=== PATIENT | male | born 1955 | race Asian ===

== ENCOUNTER 2021-03-10 21:23 | Inpatient (IN) | payer MEDICARE, OTHER ==
[~2021-03-10] VITALS: Ht 170.2 cm; Wt 68.0 kg
--- NOTE | 2021-03-10 21:50 | NUR ---
PATIENT BIB [facility] TO BE MEDICALLY CLEARED TO BE EVAL BY PET TEAM FOR AGRESSIVE BEHAVIOR.
--- NOTE | 2021-03-10 22:00 | NUR ---
Crisis team Shahrzad present to do eval.
[2021-03-10 23:14] LABS: *BILIRUBIN,URIN NEGATIVE (NEGATIVE); *BLOOD, URINE NEGATIVE (NEGATIVE); *CLARITY,URINE CLEAR (CLEAR); *COLOR,URINE YELLOW (YELLOW); *KETONES,URINE NEGATIVE (NEGATIVE); *UROBILINOGEN,URINE 0.2 E.U./dl (NORMAL); LEUKOCYTE ESTERASE ,URINE NEGATIVE (NEGATIVE); NITRITE, URINE NEGATIVE (NEGATIVE); UGLUCOSE NEGATIVE (NEGATIVE)
[2021-03-10 23:16] LABS: CARBON DIOXIDE 35 mmol/L (21-32); CHLORIDE 102 mmol/L (98-107); CREATININE 0.9 mg/dL (0.6-1.3); GLUCOSE 90 mg/dL (74-106); POTASSIUM 4.5 mmol/L (3.5-5.1); UREA NITROGEN, BLOOD 14 mg/dL (7-18)
[2021-03-10 23:21] LABS: ALANINE AMINOTRANSFERASE 39 U/L (16-63); ALKALINE PHOSPHATASE 71 U/L (50-136); ASPARTATE AMINOTRANSFERASE 24 U/L (15-37); BILIRUBIN,DIRECT 0.1 mg/dL (0.0-0.2); BILIRUBIN,TOTAL 0.4 mg/dL (0.2-1.0); CREATINE KINASE, TOTAL 139 U/L (39-308); ETHANOL < 3 MG/DL (0-0); TOTAL PROTEIN, SERUM 7.1 g/dL (6.4-8.2)
[2021-03-10 23:22] LABS: HEMATOCRIT 39.4 % (36.7-47.1); MEAN CORPUSCULAR HEMOGLOBIN 33.3 uug (23.8-33.4); MEAN CORPUSCULAR VOLUME 98.8 fL (73.0-96.2); PLATELET COUNT (AUTO) 178 K/uL (152-348)
[2021-03-10 23:27] LABS: *AMPHETAMINE, URINE NEGATIVE (NEGATIVE); *CANNABINOID, URINE NEGATIVE (NEGATIVE); *COCCAINE, URINE NEGATIVE (NEGATIVE); *OPIATE, URINE NEGATIVE (NEGATIVE); *PHENCYCLIDINE SCREEN,URINE NEGATIVE (NEGATIVE)
[2021-03-10 23:29] LABS: THYROID STIMULATING HORMONE 4.141 mIU/mL (0.358-3.740)
[2021-03-11 00:01] LABS: ACETAMINOPHEN < 2.0 ug/mL (10-30)
[2021-03-11] MEDS ORDERED: ATOR80TA PO (00:08)
[2021-03-11] MEDS ORDERED: MEMA10TA PO (00:08)
[2021-03-11] MEDS ORDERED: ASCO500C18 PO (00:08)
[2021-03-11] MEDS ORDERED: DOCU100C36 PO (00:08)
[2021-03-11] MEDS ORDERED: LORA-258 PO (00:08)
[2021-03-11] MEDS ORDERED: RISP2TAB5 PO (00:08)
[2021-03-11] MEDS ORDERED: SENN-261 PO (00:08)
[2021-03-11] MEDS ORDERED: GABA-532 PO (00:08)
[2021-03-11] MEDS ORDERED: BISA10SU61 RC (00:08)
[2021-03-11] MEDS ORDERED: FAMO40TA7 PO (00:08)
[2021-03-11] MEDS ORDERED: DONE5TAB34 PO (00:08)
[2021-03-11] MEDS ORDERED: NA P133E RC (00:08)
[2021-03-11] MEDS ORDERED: BENZ0.5T43 PO (00:08)
[2021-03-11] MEDS ORDERED: MULT-594 PO (00:08)
[2021-03-11] MEDS ORDERED: RISP1TAB7 PO (00:08)
[2021-03-11] MEDS ORDERED: ASPI-612 PO (00:08)
[2021-03-11] MEDS ORDERED: ACET-2154 PO (00:08)
[2021-03-11] MEDS ORDERED: MAGN400O6 PO (00:08)
[2021-03-11] MEDS ORDERED: ZIPRASIDONE MESYLATE 20 MG VIAL IM ONE ×2 (00:12→00:15)
--- NOTE | 2021-03-11 00:15 | NUR ---
Pt. admitted to [facility], Room 137A, under care of Judy Worthington and Dr Taylor. Report given to ENRIQUETA Zepeda. Belongs List completed.
[2021-03-11] MEDS ORDERED: MAGNESIUM HYDROXIDE 30 ML LIQUID UDC PO PRN (03:00)
[2021-03-11] MEDS ORDERED: BLOOD SUGAR DIAGNOSTIC 1 EACH STRIP VI ONE (03:00)
[2021-03-11] MEDS ORDERED: MAG HYDROX/AL HYDROX/SIMETH 30 ML LIQUID UDC PO PRN (03:00)
[2021-03-11] MEDS ORDERED: ACETAMINOPHEN 325 MG TABLET PO PRN (03:00)
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
[2021-03-11] MEDS: LORAZEPAM 0.5 MG TABLET PO PRN ×3 (06:12→23:31)
--- NOTE | 2021-03-11 06:49 | NUR ---
Did not sleep, all night. PRN ativan was given, with a little water, around 0610. As of now, he remains hyperverbal, but slightly calmer. Stated he wanted some breakfast.
[2021-03-11 07:30] VITALS: BP 122/97
[2021-03-11] MEDS: DOCUSATE SODIUM 100 MG CAPSULE PO SCH ×2 (09:33→19:03)
[2021-03-11] MEDS: MEMANTINE HCL 10 MG TABLET PO SCH ×2 (09:33→19:03)
[2021-03-11] MEDS: MULTIVITAMINS,THERAPEUTIC TABLET PO SCH (09:33)
[2021-03-11] MEDS: FAMOTIDINE 20 MG TABLET PO SCH (09:33)
[2021-03-11] MEDS: ASCORBIC ACID 500 MG TABLET PO SCH ×3 (09:33→23:32)
[2021-03-11] MEDS: GABAPENTIN 100 MG CAPSULE PO SCH ×2 (09:33→12:50)
[2021-03-11] MEDS: ASPIRIN 325 MG TABLET PO SCH (11:03)
--- NOTE | 2021-03-11 11:07 | NUR ---
GPS: PT RECEIVED ON MARKUS-CHAIR FOR SAFETY. PT CONFUSED AND DISORIENTED. PT WITH EPISODES OF SCREAMING ON THE HALLWAY, TALKING TO HIMSELF IN [place]. PT SPEAKS AND UNDERSTANDS TUNISIAN WELL. REDIRECT PT AND TOLD NOT TO SCREAM, PT ANSWERED BACK, "OKAY, SCREAM NOT GOOD". ATIVAN GIVEN 5 MINUTES AGO AND TOLERATED WELL BY PT.
--- NOTE | 2021-03-11 16:23 | NUR ---
CRISS Initial Discharge Note Pt currently resides at [facility] located at [address] [place] [address] ([phone]). Pt does not have any support from family members at this time. CRISS contacted [facility] and spoke with Mitchell, rental coordinator ([phone]) who will follow-up and inform if pt is welcome back upon discharge. CRISS will coordinate with pt, treatment team, and MD to coordinate a safe and proper discharge.
--- NOTE | 2021-03-11 16:34 | NUR ---
SW Discharge Note Update Spoke with Mitchell ([phone]) with [facility] [place] [address] [place] [address] ([phone]) who informed [facility] is not able to accept pt back after discharge.
[2021-03-11 16:52] VITALS: BP 90/72
[2021-03-11] MEDS ORDERED: risperiDONE 0.5 MG TABLET PO SCH (17:00)
[2021-03-11] MEDS: BENZTROPINE MESYLATE 0.5 MG TABLET PO SCH (19:03)
[2021-03-11] MEDS: busPIRone 5 MG TABLET PO SCH (19:03)
[2021-03-11] MEDS: LITHIUM CARBONATE 150 MG CAPSULE PO SCH (19:09)
[2021-03-11 20:06] VITALS: BP 134/66
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
[2021-03-11] MEDS: ATORVASTATIN 40 MG TABLET PO SCH ×2 (21:59→23:32)
[2021-03-11] MEDS: SENNOSIDES 1 TABLET PO SCH ×2 (21:59→23:31)
[2021-03-11] MEDS: DONEPEZIL 5 MG TABLET PO SCH ×2 (21:59→23:32)
--- NOTE | 2021-03-12 05:14 | NUR ---
Received to care, up in janeth chair, sleeping. HE awoke at 2331, and was given his medications, along with PRN Ativan, for anxiety, and restlessness. He was given food, fluids, and was assisted to the toilet. He was taken to bed, but immediately tried to get up, so he slept at nurses station, in janeth chair. He continues to sleep. No distress noted.
[2021-03-12 07:30] VITALS: BP 148/93
--- NOTE | 2021-03-12 09:21 | NUR ---
Treatment Plan Patient unable to sign treatment plan due to disorganized thought process.
[2021-03-12] MEDS: risperiDONE 0.5 MG TABLET PO SCH ×3 (09:28→18:16)
[2021-03-12] MEDS: MEMANTINE HCL 10 MG TABLET PO SCH ×2 (09:29→18:16)
[2021-03-12] MEDS: ASCORBIC ACID 500 MG TABLET PO SCH ×2 (09:29→20:50)
[2021-03-12] MEDS: BENZTROPINE MESYLATE 0.5 MG TABLET PO SCH ×2 (09:29→18:17)
[2021-03-12] MEDS: LITHIUM CARBONATE 150 MG CAPSULE PO SCH ×3 (09:29→21:43)
[2021-03-12] MEDS: MULTIVITAMINS,THERAPEUTIC TABLET PO SCH (09:29)
[2021-03-12] MEDS: LORAZEPAM 0.5 MG TABLET PO PRN ×2 (09:29→20:50)
[2021-03-12] MEDS: busPIRone 5 MG TABLET PO SCH ×3 (09:29→18:16)
[2021-03-12] MEDS: FAMOTIDINE 20 MG TABLET PO SCH (09:29)
[2021-03-12] MEDS: DOCUSATE SODIUM 100 MG CAPSULE PO SCH ×2 (09:29→18:16)
[2021-03-12] MEDS: ASPIRIN 325 MG TABLET PO SCH (09:30)
--- NOTE | 2021-03-12 10:32 | NUR ---
Firearms Report Clinical Services Assistant completed and submitted a DOJ firearms report for 5150 grave disability and danger to others certifications. A copy of report has been placed in patient chart.
[2021-03-12 15:57] VITALS: BP 123/82
[2021-03-12 20:28] VITALS: BP 137/96
[2021-03-12] MEDS: SENNOSIDES 1 TABLET PO SCH (20:49)
[2021-03-12] MEDS: risperiDONE 1 MG TABLET PO SCH (20:50)
[2021-03-12] MEDS: ATORVASTATIN 40 MG TABLET PO SCH (20:50)
[2021-03-12] MEDS: DONEPEZIL 5 MG TABLET PO SCH (20:50)
[2021-03-13 07:30] VITALS: BP 135/99
[2021-03-13] MEDS: risperiDONE 0.5 MG TABLET PO SCH ×3 (08:08→17:26)
[2021-03-13] MEDS: LITHIUM CARBONATE 150 MG CAPSULE PO SCH ×3 (08:09→21:35)
[2021-03-13] MEDS: FAMOTIDINE 20 MG TABLET PO SCH (08:09)
[2021-03-13] MEDS: busPIRone 5 MG TABLET PO SCH ×3 (08:09→17:27)
[2021-03-13] MEDS: DOCUSATE SODIUM 100 MG CAPSULE PO SCH ×2 (08:09→17:27)
[2021-03-13] MEDS: ASPIRIN 325 MG TABLET PO SCH (08:09)
[2021-03-13] MEDS: MEMANTINE HCL 10 MG TABLET PO SCH ×2 (08:09→17:26)
[2021-03-13] MEDS: ASCORBIC ACID 500 MG TABLET PO SCH ×2 (08:10→21:27)
[2021-03-13] MEDS: MULTIVITAMINS,THERAPEUTIC TABLET PO SCH (08:10)
[2021-03-13] MEDS: BENZTROPINE MESYLATE 0.5 MG TABLET PO SCH ×2 (08:10→17:27)
[2021-03-13] MEDS: LORAZEPAM 0.5 MG TABLET PO PRN ×3 (08:26→21:28)
[2021-03-13] MEDS ORDERED: HALOPERIDOL LACTATE 5 MG/1 ML VIAL IM ONE (08:45)
[2021-03-13] MEDS ORDERED: LORAZEPAM 2 MG/1 ML VIAL IM ONE (08:45)
[2021-03-13] MEDS ORDERED: diphenhydrAMINE 50 MG/1 ML VIAL IM ONE (08:45)
--- NOTE | 2021-03-13 09:00 | NUR ---
patient is very agitated, combative, hitting the staff, kicking, yelling, throwing stuff, not being able to redirect, order obtained for IM, Ativan, Haldol, and Benadryl, administered, as ordered, continue to monitor behavior. Addendum: 03/13/21 at 1300 by ARIAN ALEXANDER RN RN patient noted with very aggressive and combative behavior, offered to assist with toiling, starting yelling at staff, kicking with his legs and punching the staff, patient is very high risk to fall, unsteady gait, if staff tried to assist with toiling for patient safety, patient started hitting instead, tried to explain about risk to fall and injury, patient unable to understand due to combativeness and aggressive behavior, very difficult to redirect. IM of Ativan, Benadryl,and Haldol administered as ordered, continue to monitor for safety and for behavior, no acute distress noted, respirations are even and nonlabored.
--- NOTE | 2021-03-13 09:15 | NUR ---
patient sitting in janeth chair, offered fluids, still noted with agitation, yelling and trying to hit the staff, continue to monitor behavior, no distress noted, respirations are even and nonlabored.
--- NOTE | 2021-03-13 10:00 | NUR ---
patient sitting in the janeth chair, talking to himself, no distress noted, little calm, fluids offered, no distress noted, respirations are even and nonlabored.
--- NOTE | 2021-03-13 10:33 | NUR ---
patient sitting in janeth chair, talking to himself, no distress noted, respiration are 16, even and nonlabored. calm at this time, continue to monitor behaviour
--- NOTE | 2021-03-13 13:01 | NUR ---
patient sitting in janeth chair, calm, fluids and lunch offered, assisted to the toilet, kept clean and dry, no distress noted, resp even nonlabored, skin warm and dry dry to touch. continue to monitor for patient safety and for behavior
[2021-03-13 16:00] VITALS: BP 125/87
--- NOTE | 2021-03-13 16:48 | NUR ---
patient noted with increased pulse above 100, no other symptoms noted, reported to ashley BECKWITH, with order to do EKG, order noted
--- NOTE | 2021-03-13 18:00 | NUR ---
ekg reported to Jose L, with order to do cbc,cmp, order noted.
--- NOTE | 2021-03-13 19:21 | NUR ---
endorsed to next shift accordingly, no acute distress noted
[2021-03-13 20:00] VITALS: BP 116/75
[2021-03-13] MEDS: risperiDONE 1 MG TABLET PO SCH (21:27)
[2021-03-13] MEDS: SENNOSIDES 1 TABLET PO SCH (21:27)
[2021-03-13] MEDS: DONEPEZIL 5 MG TABLET PO SCH (21:27)
[2021-03-13] MEDS: ATORVASTATIN 40 MG TABLET PO SCH (21:28)
[2021-03-13 21:36] LABS: HEMATOCRIT 43.1 % (36.7-47.1); MEAN CORPUSCULAR HEMOGLOBIN 33.8 uug (23.8-33.4); MEAN CORPUSCULAR VOLUME 99.1 fL (73.0-96.2); PLATELET COUNT (AUTO) 201 K/uL (152-348)
[2021-03-13 21:38] LABS: CREATININE 0.8 mg/dL (0.6-1.3); POTASSIUM 4.2 mmol/L (3.5-5.1)
[2021-03-13 21:44] LABS: BILIRUBIN,TOTAL 0.6 mg/dL (0.2-1.0); TOTAL PROTEIN, SERUM 7.6 g/dL (6.4-8.2)
[2021-03-14] MEDS: LITHIUM CARBONATE 150 MG CAPSULE PO SCH ×3 (08:00→21:46)
[2021-03-14] MEDS: ASCORBIC ACID 500 MG TABLET PO SCH ×2 (09:00→21:46)
[2021-03-14] MEDS: MEMANTINE HCL 10 MG TABLET PO SCH ×2 (09:00→16:50)
[2021-03-14] MEDS: busPIRone 5 MG TABLET PO SCH ×3 (09:00→16:50)
[2021-03-14] MEDS: BENZTROPINE MESYLATE 0.5 MG TABLET PO SCH ×2 (09:00→16:51)
[2021-03-14] MEDS ORDERED: diphenhydrAMINE 50 MG/1 ML VIAL IM ONE (09:00)
[2021-03-14] MEDS: FAMOTIDINE 20 MG TABLET PO SCH (09:00)
[2021-03-14] MEDS: MULTIVITAMINS,THERAPEUTIC TABLET PO SCH (09:00)
[2021-03-14] MEDS: DOCUSATE SODIUM 100 MG CAPSULE PO SCH ×2 (09:00→16:50)
[2021-03-14] MEDS: risperiDONE 0.5 MG TABLET PO SCH ×3 (09:00→16:51)
[2021-03-14] MEDS ORDERED: LORAZEPAM 2 MG/1 ML VIAL IM ONE (09:00)
[2021-03-14] MEDS ORDERED: HALOPERIDOL LACTATE 5 MG/1 ML VIAL IM ONE (09:00)
[2021-03-14] MEDS: ASPIRIN 325 MG TABLET PO SCH (09:00)
--- NOTE | 2021-03-14 09:11 | NUR ---
Patient became aggressive, combative, striking out at others, Dr. Wells was called and ordered Haldol 5 mg, Ativan 1 mg, and Benadryl 25 mg given at 09:05 am. Pt. had to be held by 4 people including security. Pt. was kicking and punching. No physical harm was caused between patient or staff. Pt. will be monitored every 15 minutes after IM.
--- NOTE | 2021-03-14 15:10 | NUR ---
Pt. is received awake in his room. Pt. affect is aggressive towards staff, verbally abusive. After IM patient became more calm and cooperative. Compliant with medications at 13:00, refused at 09:00. Unsteady gait. Reality orientation provided. Fall and safety precautions implemented.
[2021-03-14 15:58] VITALS: BP 131/84
[2021-03-14 20:12] VITALS: BP 123/88
[2021-03-14] MEDS: DONEPEZIL 5 MG TABLET PO SCH (21:46)
[2021-03-14] MEDS: LORAZEPAM 0.5 MG TABLET PO PRN (21:46)
[2021-03-14] MEDS: risperiDONE 1 MG TABLET PO SCH (21:46)
[2021-03-14] MEDS: SENNOSIDES 1 TABLET PO SCH (21:46)
[2021-03-14] MEDS: ATORVASTATIN 40 MG TABLET PO SCH (21:51)
[2021-03-15] MEDS: ASPIRIN 325 MG TABLET PO SCH (09:45)
[2021-03-15] MEDS: LITHIUM CARBONATE 150 MG CAPSULE PO SCH ×3 (09:46→21:44)
[2021-03-15] MEDS: MEMANTINE HCL 10 MG TABLET PO SCH ×2 (09:46→18:16)
[2021-03-15] MEDS: FAMOTIDINE 20 MG TABLET PO SCH (09:46)
[2021-03-15] MEDS: MULTIVITAMINS,THERAPEUTIC TABLET PO SCH (09:46)
[2021-03-15] MEDS: BENZTROPINE MESYLATE 0.5 MG TABLET PO SCH (09:47)
[2021-03-15] MEDS: busPIRone 5 MG TABLET PO SCH (09:47)
[2021-03-15] MEDS: DOCUSATE SODIUM 100 MG CAPSULE PO SCH ×2 (09:49→18:16)
[2021-03-15] MEDS: ASCORBIC ACID 500 MG TABLET PO SCH ×2 (09:56→21:44)
[2021-03-15] MEDS: LORAZEPAM 0.5 MG TABLET PO PRN (09:57)
[2021-03-15] MEDS: CLONAZEPAM 0.5 MG TABLET PO SCH ×3 (10:30→18:17)
[2021-03-15] MEDS ORDERED: busPIRone 5 MG TABLET PO SCH (13:00)
[2021-03-15] MEDS: risperiDONE 0.5 MG TABLET PO SCH ×2 (13:12→18:16)
[2021-03-15 16:15] VITALS: BP 126/83
--- NOTE | 2021-03-15 17:21 | NUR ---
SW SNF Referral CRISS spoke with Mitchell ([phone]) with [facility] who informed pt is not accepted back at [facility]. CRISS faxed patient's referral packet to Mitchell for review and to re-route for appropriate placement (fax: [phone]).
--- NOTE | 2021-03-15 19:02 | NUR ---
patient has been in janeth chair all shift noisy in am much quieter after ATIVAN IN AM AND KLONOASHWIN IN PM CONTINUE TO MONITOR FOR SAFETY
[2021-03-15 19:58] VITALS: BP 148/93
[2021-03-15] MEDS ORDERED: risperiDONE 0.5 MG TABLET PO SCH (21:00)
[2021-03-15] MEDS: SENNOSIDES 1 TABLET PO SCH (21:44)
[2021-03-15] MEDS: DONEPEZIL 5 MG TABLET PO SCH (21:44)
[2021-03-15] MEDS: ATORVASTATIN 40 MG TABLET PO SCH (21:45)
[2021-03-16 07:57] VITALS: BP 117/79
[2021-03-16 08:14] LABS: HEMATOCRIT 43.2 % (36.7-47.1); MEAN CORPUSCULAR HEMOGLOBIN 33.6 uug (23.8-33.4); MEAN CORPUSCULAR VOLUME 98.8 fL (73.0-96.2); PLATELET COUNT (AUTO) 210 K/uL (152-348)
[2021-03-16 08:25] LABS: BILIRUBIN,TOTAL 1.2 mg/dL (0.2-1.0); TOTAL PROTEIN, SERUM 7.5 g/dL (6.4-8.2)
[2021-03-16] MEDS: FAMOTIDINE 20 MG TABLET PO SCH (08:56)
[2021-03-16] MEDS: ASPIRIN 325 MG TABLET PO SCH (08:56)
[2021-03-16] MEDS: DOCUSATE SODIUM 100 MG CAPSULE PO SCH ×2 (08:56→17:00)
[2021-03-16] MEDS: MEMANTINE HCL 10 MG TABLET PO SCH ×2 (08:57→17:15)
[2021-03-16] MEDS: MULTIVITAMINS,THERAPEUTIC TABLET PO SCH (08:57)
[2021-03-16] MEDS: LORAZEPAM 0.5 MG TABLET PO PRN (08:57)
[2021-03-16] MEDS: CLONAZEPAM 0.5 MG TABLET PO SCH ×3 (08:57→17:14)
[2021-03-16] MEDS: LITHIUM CARBONATE 150 MG CAPSULE PO SCH ×3 (08:57→21:42)
[2021-03-16] MEDS: ASCORBIC ACID 500 MG TABLET PO SCH ×2 (08:57→21:40)
[2021-03-16] MEDS: GLUCERNA SHAKE 237 ML CAN PO SCH (09:10)
[2021-03-16] MEDS: risperiDONE 0.5 MG TABLET PO SCH ×2 (09:38→14:24)
--- NOTE | 2021-03-16 13:50 | NUR ---
SW SNF Contact SW spoke with Mitchell ebd teacher with [facility] [address] [place] [address] ([phone]) to follow-up on SNF referral status. Mitchell informed pt has been referred to [facility] per psychiatrist request, pending acceptance.
[2021-03-16 16:27] VITALS: BP 110/70
[2021-03-16] MEDS ORDERED: risperiDONE 0.5 MG TABLET PO SCH ×2 (17:00→21:00)
[2021-03-16] MEDS: risperiDONE 2 MG TABLET PO SCH ×2 (17:15→21:40)
--- NOTE | 2021-03-16 18:11 | NUR ---
recd patient ambulatory unsteady encouraged to stay in room aqnd call for help. patient incontinent of stool and disoriented, frequently reoriented, Patient incontinment of stool and urine frequent diaper changes done with skin care.Behavior calmer today. up in janeth chair for safety table intact continue to monitor for safety;
[2021-03-16] MEDS: SENNOSIDES 1 TABLET PO SCH (21:40)
[2021-03-16] MEDS: DONEPEZIL 5 MG TABLET PO SCH (21:40)
[2021-03-16] MEDS: ATORVASTATIN 40 MG TABLET PO SCH (21:41)
[2021-03-16 21:46] VITALS: BP 132/80
--- NOTE | 2021-03-17 04:57 | NUR ---
Received to care, up in janeth chair, sleeping on and off. Compliant with medications. Assisted with fluids, milk, and a snack. Assisted to bed. Slightly combative when diaper was changed. Has slept well all night. Continue to monitor for safety.
--- NOTE | 2021-03-17 04:57 | NUR ---
Received to care, up in janeth chair, sleeping on anfd off.
[2021-03-17 07:30] VITALS: BP_SYST 136; BP_SYST 146; BP_DIAS 68; BP_DIAS 86
[2021-03-17] MEDS: LORAZEPAM 0.5 MG TABLET PO PRN (08:37)
[2021-03-17] MEDS: CLONAZEPAM 0.5 MG TABLET PO SCH ×3 (08:37→16:49)
[2021-03-17] MEDS: MULTIVITAMINS,THERAPEUTIC TABLET PO SCH (08:37)
[2021-03-17] MEDS: GLUCERNA SHAKE 237 ML CAN PO SCH (08:37)
[2021-03-17] MEDS: ASPIRIN 325 MG TABLET PO SCH (08:37)
[2021-03-17] MEDS: MEMANTINE HCL 10 MG TABLET PO SCH ×2 (08:37→16:49)
[2021-03-17] MEDS: risperiDONE 2 MG TABLET PO SCH ×4 (08:37→22:27)
[2021-03-17] MEDS: ASCORBIC ACID 500 MG TABLET PO SCH ×2 (08:37→22:27)
[2021-03-17] MEDS: DOCUSATE SODIUM 100 MG CAPSULE PO SCH ×2 (08:37→16:49)
[2021-03-17] MEDS: FAMOTIDINE 20 MG TABLET PO SCH (08:37)
[2021-03-17] MEDS: LITHIUM CARBONATE 150 MG CAPSULE PO SCH ×3 (08:38→22:28)
--- NOTE | 2021-03-17 11:10 | NUR ---
GPS: PT ON MARKUS-CHAIR FOR SAFETY. PT COOPERATIVE WITH CARE AND COMPLIANTY WITH MEDS. PT GIVEN ATIVAN AFTER PT SCREAMING AND GETTING AGITATED ALONG THE HALLWAY. RIGHT NOW, PT SLEEPING AND QUIET. DENIES PAIN OR DISCOMFORT.
[2021-03-17 16:00] VITALS: BP 124/98
[2021-03-17 19:55] VITALS: BP 105/71
[2021-03-17] MEDS: ATORVASTATIN 40 MG TABLET PO SCH (22:26)
[2021-03-17] MEDS: SENNOSIDES 1 TABLET PO SCH (22:26)
[2021-03-17] MEDS: DONEPEZIL 5 MG TABLET PO SCH (22:27)
--- NOTE | 2021-03-18 02:03 | NUR ---
Received up in janeth chair. Confused, and cooperative. No aggressive behaviors, exhibited. he was assisted to bed, and is asleep. No distress noted.
[2021-03-18 07:30] VITALS: BP 105/68
[2021-03-18] MEDS: ASCORBIC ACID 500 MG TABLET PO SCH ×2 (08:16→20:58)
[2021-03-18] MEDS: DOCUSATE SODIUM 100 MG CAPSULE PO SCH ×2 (08:16→16:48)
[2021-03-18] MEDS: FAMOTIDINE 20 MG TABLET PO SCH (08:16)
[2021-03-18] MEDS: MEMANTINE HCL 10 MG TABLET PO SCH ×2 (08:17→16:48)
[2021-03-18] MEDS: GLUCERNA SHAKE 237 ML CAN PO SCH (08:17)
[2021-03-18] MEDS: risperiDONE 2 MG TABLET PO SCH ×4 (08:17→20:58)
[2021-03-18] MEDS: MULTIVITAMINS,THERAPEUTIC TABLET PO SCH (08:17)
[2021-03-18] MEDS: ASPIRIN 325 MG TABLET PO SCH (08:17)
[2021-03-18] MEDS: LITHIUM CARBONATE 150 MG CAPSULE PO SCH ×3 (08:17→21:20)
[2021-03-18] MEDS: CLONAZEPAM 0.5 MG TABLET PO SCH ×3 (08:17→16:48)
[2021-03-18] MEDS: BENZTROPINE MESYLATE 0.5 MG TABLET PO SCH ×2 (12:42→16:48)
[2021-03-18 16:31] VITALS: BP 124/70
[2021-03-18 20:02] VITALS: BP 120/76
[2021-03-18] MEDS: SENNOSIDES 1 TABLET PO SCH (20:57)
[2021-03-18] MEDS: DONEPEZIL 5 MG TABLET PO SCH (20:58)
[2021-03-18] MEDS: ATORVASTATIN 40 MG TABLET PO SCH (20:58)
--- NOTE | 2021-03-19 05:17 | NUR ---
Received to care, up in janeth chair, sleeping on and off. Compliant with medications. Assisted with fluids, milk, and a snack, then to bed. Compliant with care, even when diaper was changed. Has slept well all night. Continue to monitor for safety.
[2021-03-19 07:14] LABS: HEMATOCRIT 41.7 % (36.7-47.1); MEAN CORPUSCULAR HEMOGLOBIN 33.2 uug (23.8-33.4); MEAN CORPUSCULAR VOLUME 98.1 fL (73.0-96.2); PLATELET COUNT (AUTO) 219 K/uL (152-348)
[2021-03-19 07:30] VITALS: BP 120/79
[2021-03-19 07:41] LABS: THYROID STIMULATING HORMONE 5.173 mIU/mL (0.358-3.740)
[2021-03-19 07:53] LABS: BILIRUBIN,TOTAL 0.9 mg/dL (0.2-1.0); CREATININE 1.1 mg/dL (0.6-1.3); TOTAL PROTEIN, SERUM 6.9 g/dL (6.4-8.2)
[2021-03-19] MEDS: DOCUSATE SODIUM 100 MG CAPSULE PO SCH ×2 (09:00→17:35)
[2021-03-19] MEDS: ASCORBIC ACID 500 MG TABLET PO SCH ×2 (09:51→20:07)
[2021-03-19] MEDS: BENZTROPINE MESYLATE 0.5 MG TABLET PO SCH ×3 (09:51→17:35)
[2021-03-19] MEDS: FAMOTIDINE 20 MG TABLET PO SCH (09:51)
[2021-03-19] MEDS: MULTIVITAMINS,THERAPEUTIC TABLET PO SCH (09:51)
[2021-03-19] MEDS: ASPIRIN 325 MG TABLET PO SCH (09:51)
[2021-03-19] MEDS: MEMANTINE HCL 10 MG TABLET PO SCH ×2 (09:52→17:35)
[2021-03-19] MEDS: risperiDONE 2 MG TABLET PO SCH ×4 (09:52→20:07)
[2021-03-19] MEDS: CLONAZEPAM 0.5 MG TABLET PO SCH ×3 (09:52→17:00)
[2021-03-19] MEDS: GLUCERNA SHAKE 237 ML CAN PO SCH (09:53)
[2021-03-19 16:32] VITALS: BP 142/74
--- NOTE | 2021-03-19 16:32 | NUR ---
PAtient up in janeth chair in hallway resp unlabored, easily arousable to verbal and tactile stimuli, oral intake fair able to feed himself with little asssi. No behavior problems today less agitated patient monitored for safety.
[2021-03-19] MEDS: DONEPEZIL 5 MG TABLET PO SCH (20:07)
[2021-03-19] MEDS: ATORVASTATIN 40 MG TABLET PO SCH (20:07)
[2021-03-19] MEDS: SENNOSIDES 1 TABLET PO SCH (20:07)
[2021-03-19] MEDS: LITHIUM CARBONATE 150 MG CAPSULE PO SCH (20:09)
[2021-03-19 20:28] VITALS: BP 139/96
--- NOTE | 2021-03-20 06:03 | NUR ---
Gps: patient remain calm and cooperative with meds and care. no agitation noted.slept 7.45 hrs through the night. continue plan of care.
[2021-03-20 07:30] VITALS: BP 120/75
[2021-03-20] MEDS: ASCORBIC ACID 500 MG TABLET PO SCH ×2 (08:19→20:12)
[2021-03-20] MEDS: BENZTROPINE MESYLATE 0.5 MG TABLET PO SCH ×3 (08:19→18:04)
[2021-03-20] MEDS: risperiDONE 2 MG TABLET PO SCH ×4 (08:19→20:12)
[2021-03-20] MEDS: FAMOTIDINE 20 MG TABLET PO SCH (08:19)
[2021-03-20] MEDS: LITHIUM CARBONATE 150 MG CAPSULE PO SCH ×2 (08:20→20:15)
[2021-03-20] MEDS: MEMANTINE HCL 10 MG TABLET PO SCH ×2 (08:20→18:05)
[2021-03-20] MEDS: ASPIRIN 325 MG TABLET PO SCH (08:20)
[2021-03-20] MEDS: CLONAZEPAM 0.5 MG TABLET PO SCH ×3 (08:20→18:05)
[2021-03-20] MEDS: MULTIVITAMINS,THERAPEUTIC TABLET PO SCH (08:20)
[2021-03-20] MEDS: GLUCERNA SHAKE 237 ML CAN PO SCH (08:20)
[2021-03-20] MEDS: DOCUSATE SODIUM 100 MG CAPSULE PO SCH ×2 (08:20→18:05)
--- NOTE | 2021-03-20 10:34 | NUR ---
GPS; PT ON BED. ASSISTED PT TRANSFER FROM BED TO MARKUS-CHAIR FOR BREAKFAST. FED THE PT AND PT ABLE TO TOLERATE WELL THE FOOD AND COMPLIANT WITH MEDICATIONS. PT ON TOTAL CARE. NO AGGRESSIVE BEHAVIOR AT THIS TIME. WILL MONITOR PT.
[2021-03-20 15:37] VITALS: BP 114/68
--- NOTE | 2021-03-20 18:33 | NUR ---
GPS: ASSISTED VET TECH TODAY AND GIVEN PT A SHOWER. PT GETS AGGRESSIVE AND TRYING TO HIT VET TECH WHILE PLACING A SOCKS ON PT. ABLE TO HOLD PTS ARM. PT DENIES ANY PAIN OR DISCOMFORT. ABLE TO TOLERATE THE MEDICATIONS. NO YELLING OR SCREAMING AT THIS TIME.
[2021-03-20 20:00] VITALS: BP 115/72
[2021-03-20] MEDS: DONEPEZIL 5 MG TABLET PO SCH (20:12)
[2021-03-20] MEDS: SENNOSIDES 1 TABLET PO SCH (20:12)
[2021-03-20] MEDS: ATORVASTATIN 40 MG TABLET PO SCH (20:12)
--- NOTE | 2021-03-21 05:58 | NUR ---
GPS: Patient remain compliant and cooperative with staff with meds and care. slept 8.15 hrs through the night. no agitation noted at this time..
[2021-03-21 07:30] VITALS: BP 129/81
[2021-03-21] MEDS: FAMOTIDINE 20 MG TABLET PO SCH (09:01)
[2021-03-21] MEDS: MULTIVITAMINS,THERAPEUTIC TABLET PO SCH (09:01)
[2021-03-21] MEDS: MEMANTINE HCL 10 MG TABLET PO SCH ×2 (09:01→16:59)
[2021-03-21] MEDS: DOCUSATE SODIUM 100 MG CAPSULE PO SCH ×2 (09:01→16:59)
[2021-03-21] MEDS: BENZTROPINE MESYLATE 0.5 MG TABLET PO SCH ×3 (09:01→16:59)
[2021-03-21] MEDS: ASCORBIC ACID 500 MG TABLET PO SCH ×2 (09:02→21:01)
[2021-03-21] MEDS: LITHIUM CARBONATE 150 MG CAPSULE PO SCH ×2 (09:02→21:03)
[2021-03-21] MEDS: ASPIRIN 325 MG TABLET PO SCH (09:02)
[2021-03-21] MEDS: GLUCERNA SHAKE 237 ML CAN PO SCH (09:03)
[2021-03-21] MEDS: CLONAZEPAM 0.5 MG TABLET PO SCH ×3 (09:03→17:00)
[2021-03-21] MEDS: risperiDONE 2 MG TABLET PO SCH ×4 (09:59→21:01)
[2021-03-21 15:02] VITALS: BP 106/70
--- NOTE | 2021-03-21 15:23 | NUR ---
GPS: pt is calm, currently sleeping on geriatric chair in hallway for observation. Pt tolerated meals well, he is compliant and cooperative with care and medications. Pt take medications crushed in applesauce, he is a/o x 1, does not speak much Marshallese but understands when medication and food is being given to him.
[2021-03-21 20:00] VITALS: BP 105/64
[2021-03-21] MEDS: SENNOSIDES 1 TABLET PO SCH (21:01)
[2021-03-21] MEDS: ATORVASTATIN 40 MG TABLET PO SCH (21:01)
[2021-03-21] MEDS: DONEPEZIL 5 MG TABLET PO SCH (21:01)
--- NOTE | 2021-03-22 04:00 | NUR ---
Received to care, up in janeth chair, sleeping on and off. Compliant with medications. Assisted with fluids, milk, and a snack. Assisted to bed, without any problems. No aggressive behavior, during patient care. Has slept well all night, so far. Will continue to monitor for safety.
[2021-03-22 07:30] VITALS: BP 133/87
[2021-03-22] MEDS: LITHIUM CARBONATE 150 MG CAPSULE PO SCH ×2 (09:02→21:07)
[2021-03-22] MEDS: CLONAZEPAM 0.5 MG TABLET PO SCH ×3 (09:02→17:23)
[2021-03-22] MEDS: risperiDONE 2 MG TABLET PO SCH ×4 (09:02→20:59)
[2021-03-22] MEDS: GLUCERNA SHAKE 237 ML CAN PO SCH (09:03)
[2021-03-22] MEDS: MEMANTINE HCL 10 MG TABLET PO SCH ×2 (09:08→17:23)
[2021-03-22] MEDS: DOCUSATE SODIUM 100 MG CAPSULE PO SCH ×2 (09:08→17:00)
[2021-03-22] MEDS: FAMOTIDINE 20 MG TABLET PO SCH (09:08)
[2021-03-22] MEDS: MULTIVITAMINS,THERAPEUTIC TABLET PO SCH (09:08)
[2021-03-22] MEDS: ASCORBIC ACID 500 MG TABLET PO SCH ×2 (09:09→20:59)
[2021-03-22] MEDS: BENZTROPINE MESYLATE 0.5 MG TABLET PO SCH ×3 (09:09→17:23)
[2021-03-22] MEDS: ASPIRIN 325 MG TABLET PO SCH (09:09)
--- NOTE | 2021-03-22 10:41 | NUR ---
patient is alert but is disoriented. he is uncooperative, agitated, resistive to care, and constantly screams at staff and attempts to hit staff during care. patient screams "I wanna go home!" frequently and he is provided with reality orientation. patient requires assistance with ADL's, ambulation, and feeding. patient is compliant with medications with prompting and reality orientation. patient provided with education about impulse control and instructed to communicate needs to staff appropriately.
[2021-03-22 15:02] VITALS: BP 150/83
[2021-03-22 20:01] VITALS: BP 130/81
[2021-03-22] MEDS: ATORVASTATIN 40 MG TABLET PO SCH (20:59)
[2021-03-22] MEDS: DONEPEZIL 5 MG TABLET PO SCH (20:59)
[2021-03-22] MEDS: SENNOSIDES 1 TABLET PO SCH (20:59)
[2021-03-23 07:49] LABS: MEAN CORPUSCULAR HEMOGLOBIN 33.2 uug (23.8-33.4); MEAN CORPUSCULAR VOLUME 98.3 fL (73.0-96.2); PLATELET COUNT (AUTO) 239 K/uL (152-348)
[2021-03-23 08:12] LABS: BILIRUBIN,TOTAL 0.7 mg/dL (0.2-1.0); CREATININE 0.9 mg/dL (0.6-1.3); POTASSIUM 3.8 mmol/L (3.5-5.1); TOTAL PROTEIN, SERUM 7.2 g/dL (6.4-8.2)
[2021-03-23 08:30] VITALS: BP 121/65
[2021-03-23] MEDS: MULTIVITAMINS,THERAPEUTIC TABLET PO SCH (08:57)
[2021-03-23] MEDS: DOCUSATE SODIUM 100 MG CAPSULE PO SCH ×2 (08:57→17:32)
[2021-03-23] MEDS: MEMANTINE HCL 10 MG TABLET PO SCH ×2 (08:57→17:34)
[2021-03-23] MEDS: BENZTROPINE MESYLATE 0.5 MG TABLET PO SCH ×3 (08:58→17:32)
[2021-03-23] MEDS: CLONAZEPAM 0.5 MG TABLET PO SCH ×3 (08:58→17:32)
[2021-03-23] MEDS: risperiDONE 2 MG TABLET PO SCH ×4 (08:58→20:55)
[2021-03-23] MEDS: ASCORBIC ACID 500 MG TABLET PO SCH ×2 (08:58→20:55)
[2021-03-23] MEDS: FAMOTIDINE 20 MG TABLET PO SCH (08:58)
[2021-03-23] MEDS: GLUCERNA SHAKE 237 ML CAN PO SCH (08:58)
[2021-03-23] MEDS: ASPIRIN 325 MG TABLET PO SCH (08:59)
[2021-03-23] MEDS: LITHIUM CARBONATE 150 MG CAPSULE PO SCH ×2 (08:59→20:59)
--- NOTE | 2021-03-23 09:00 | NUR ---
GPS: PT ON BED ASLEEP WHEN RECEIVED. TRANSFERRED TO MARKUS-CHAIR AFTER PT THERAPY AND HAD A BREAKFAST, FED PT. ALERT AND VERBALLY RESPONSIVE. DENIES ANY PAIN OR DISCOMFORT. COMPLIANT WITH MEDICATION. WITH EPISODE OF SCREAMING WHEN HE HALLWAY IS KIND OF NOISY. NO AGITATION NOTED.
[2021-03-23 15:01] VITALS: BP 114/85
[2021-03-23 19:38] VITALS: BP 137/74
[2021-03-23] MEDS: DONEPEZIL 5 MG TABLET PO SCH (20:55)
[2021-03-23] MEDS: ATORVASTATIN 40 MG TABLET PO SCH (20:55)
[2021-03-23] MEDS: SENNOSIDES 1 TABLET PO SCH (20:55)
--- NOTE | 2021-03-24 06:30 | NUR ---
Received to care, up in janeth chair, sleeping on and off. Compliant with medications. Assisted with fluids, milk, and a snack. Assisted to bed, without any problems. No aggressive behavior, during patient care. Has slept well, 8.5 hours. Assited with AM care, and shower. IS now asleep, in bed. No distress, noted. Will continue to monitor.
[2021-03-24 07:45] VITALS: BP 131/85
[2021-03-24] MEDS: risperiDONE 2 MG TABLET PO SCH ×4 (08:11→21:52)
[2021-03-24] MEDS: CLONAZEPAM 0.5 MG TABLET PO SCH ×3 (08:11→16:46)
[2021-03-24] MEDS: MULTIVITAMINS,THERAPEUTIC TABLET PO SCH (08:11)
[2021-03-24] MEDS: MEMANTINE HCL 10 MG TABLET PO SCH ×2 (08:11→16:46)
[2021-03-24] MEDS: ASCORBIC ACID 500 MG TABLET PO SCH ×2 (08:11→21:52)
[2021-03-24] MEDS: BENZTROPINE MESYLATE 0.5 MG TABLET PO SCH ×3 (08:11→16:46)
[2021-03-24] MEDS: DOCUSATE SODIUM 100 MG CAPSULE PO SCH ×2 (08:11→16:46)
[2021-03-24] MEDS: LITHIUM CARBONATE 150 MG CAPSULE PO SCH ×2 (08:12→21:54)
[2021-03-24] MEDS: GLUCERNA SHAKE 237 ML CAN PO SCH (08:12)
[2021-03-24] MEDS: ASPIRIN 325 MG TABLET PO SCH (08:12)
[2021-03-24] MEDS: FAMOTIDINE 20 MG TABLET PO SCH (08:12)
--- NOTE | 2021-03-24 10:32 | NUR ---
GPS: PT AWAKE AND VERBALLY RESPONSIVE ASSISTED TO MARKUS-CHAIR AFTER A PHYSICAL THERAPY SESSION. PT ABLE TO CONSUME FOOD AND DRINK FLUIDS. PT COMPLIANT WITH MEDICATIONS GIVEN. PT WITH EPISODE OF SCREAMING IF SURROUNDING IS KIND OF NOISY. ASSISTED WITH BATHROOM CHORES. DENIES PAIN OR DISCOMFORT AT THIS TIME. TALKS TO HIMSELF IN GEORGIAN LANGUAGE BUT ABLE TO BE REDIRECTED WHEN PT SCREAMS.
[2021-03-24 16:28] VITALS: BP 125/80
[2021-03-24 20:54] VITALS: BP 114/75
[2021-03-24] MEDS: SENNOSIDES 1 TABLET PO SCH (21:51)
[2021-03-24] MEDS: DONEPEZIL 5 MG TABLET PO SCH (21:52)
[2021-03-24] MEDS: ATORVASTATIN 40 MG TABLET PO SCH (21:52)
[2021-03-25 07:30] VITALS: BP 126/82
[2021-03-25] MEDS: CLONAZEPAM 0.5 MG TABLET PO SCH ×3 (08:39→16:47)
[2021-03-25] MEDS: MEMANTINE HCL 10 MG TABLET PO SCH ×2 (08:39→16:47)
[2021-03-25] MEDS: ASCORBIC ACID 500 MG TABLET PO SCH ×2 (08:39→20:35)
[2021-03-25] MEDS: DOCUSATE SODIUM 100 MG CAPSULE PO SCH ×2 (08:39→16:47)
[2021-03-25] MEDS: BENZTROPINE MESYLATE 0.5 MG TABLET PO SCH ×3 (08:39→16:47)
[2021-03-25] MEDS: MULTIVITAMINS,THERAPEUTIC TABLET PO SCH (08:39)
[2021-03-25] MEDS: FAMOTIDINE 20 MG TABLET PO SCH (08:40)
[2021-03-25] MEDS: GLUCERNA SHAKE 237 ML CAN PO SCH (08:40)
[2021-03-25] MEDS: ASPIRIN 325 MG TABLET PO SCH (08:40)
[2021-03-25] MEDS: risperiDONE 2 MG TABLET PO SCH ×4 (08:40→20:35)
[2021-03-25] MEDS: LITHIUM CARBONATE 150 MG CAPSULE PO SCH ×2 (08:40→20:37)
[2021-03-25 16:00] VITALS: BP 125/77
--- NOTE | 2021-03-25 16:24 | NUR ---
CRISS Discharge Note Update CRISS sent referrals to [facility], [facility], [facility], and [facility] and contacted via phone and all locations denied pt's admission to their facility due to his behavior risk. CRISS will continue to send referrals to facilities for pt.
[2021-03-25 19:56] VITALS: BP 118/78
[2021-03-25] MEDS: SENNOSIDES 1 TABLET PO SCH (20:34)
[2021-03-25] MEDS: ATORVASTATIN 40 MG TABLET PO SCH (20:34)
[2021-03-25] MEDS: DONEPEZIL 5 MG TABLET PO SCH (20:34)
--- NOTE | 2021-03-26 06:03 | NUR ---
PATIENT REMAINED STABLE DURING THE SHIFT. NO DISTRESS IDENTIFIED. ASPIRATION PRECAUTION MAINTAINED. NO BEHAVIORAL ISSUES IDENTIFIED. AROUSABLE TO TOUCH, NO PAIN NOTED. FREQUENT VISUAL CHECKS DONE. ALL NEEDS ATTENDED. WILL ENDORSE TO THE NEXT SHIFT FOR CONTINUITY OF CARE.
[2021-03-26 07:30] VITALS: BP 109/69
[2021-03-26] MEDS: BENZTROPINE MESYLATE 0.5 MG TABLET PO SCH ×3 (08:51→16:12)
[2021-03-26] MEDS: risperiDONE 2 MG TABLET PO SCH ×4 (08:51→20:29)
[2021-03-26] MEDS: MULTIVITAMINS,THERAPEUTIC TABLET PO SCH (08:51)
[2021-03-26] MEDS: ASCORBIC ACID 500 MG TABLET PO SCH ×2 (08:51→20:29)
[2021-03-26] MEDS: DOCUSATE SODIUM 100 MG CAPSULE PO SCH ×2 (08:51→16:12)
[2021-03-26] MEDS: CLONAZEPAM 0.5 MG TABLET PO SCH ×3 (08:51→16:12)
[2021-03-26] MEDS: MEMANTINE HCL 10 MG TABLET PO SCH ×2 (08:51→16:13)
[2021-03-26] MEDS: ASPIRIN 325 MG TABLET PO SCH (08:52)
[2021-03-26] MEDS: FAMOTIDINE 20 MG TABLET PO SCH (08:52)
[2021-03-26] MEDS: LITHIUM CARBONATE 150 MG CAPSULE PO SCH ×3 (08:52→20:31)
[2021-03-26] MEDS: GLUCERNA SHAKE 237 ML CAN PO SCH (09:15)
--- NOTE | 2021-03-26 11:05 | NUR ---
SW SNF Referrals SW faxed patient's referral packet to [facility] [address] [place] [address] ( ) attention to Nickolas for review; [facility] [address] [place] [address] ( ) attention to Lanny for review; and [facility] [address] [place] [address] ( ) attention to Mirtha for review.
--- NOTE | 2021-03-26 11:33 | NUR ---
SW Discharge Plan Update Received call from Lyssa with [facility] [address] [place] [address] ([phone]) informing they are unable to accept pt as pt does not have medical needs and needs a locked facility due to his behaviors.
--- NOTE | 2021-03-26 13:03 | NUR ---
SW Discharge Plan Update CRISS spoke with L[facility] [address] [facility], [place] [address] ([phone]) informing that her claim administrator and child nutrition director both said they are unable to accept pt.
--- NOTE | 2021-03-26 13:57 | NUR ---
CRISS Discharge Note Pt will be discharged to [facility] [address] [place] [address] ([phone]) via Ambulance transportation at 5PM. CRISS spoke with kerri Ocampo at the facility, who states they are ready to accept the patient today. Pt is aware and agreeable with discharge plans. Pt is alert and oriented x1, is unable to plan for self-care at this time; however, is willing to accept care at [facility]. Pt denies any suicidal or homicidal ideation. Pt will follow-up at the facility with Dr. Taylor Psychiatrist and Dr. Warren Tape Recorder Mechanic. Pt presents with calm mood and congruent affect. Addendum: 03/26/21 at 1405 by CHARLENE Rojas CRISS Early Discharge Note Pt will be discharged to [facility] [address] [place] [address] ([phone]) on 03/27/21 via Ambulance transportation at 11AM Addendum: 03/26/21 at 1407 by CHARLENE Rojas Early Discharge Note Pt will be discharged to [facility] [address] [place] [address] ([phone]) on 03/27/21 via Ambulance transportation at 11AM.
--- NOTE | 2021-03-26 16:54 | NUR ---
Received patient sleeping in his room. A/OX 1 -2 to person, place. Pt. affect is confused, withdrawn, labile, internal responding. Compliant with medications. Ambulates with assistance, unsteady gait. Incontinent. Pt. was evaluated for swallow, chopped diet prescribed. Reassurance given. Fall and safety precautions implemented.
[2021-03-26 17:02] VITALS: BP 107/70
[2021-03-26 20:20] VITALS: BP 117/76
[2021-03-26] MEDS: ATORVASTATIN 40 MG TABLET PO SCH (20:28)
[2021-03-26] MEDS: SENNOSIDES 1 TABLET PO SCH (20:29)
[2021-03-26] MEDS: DONEPEZIL 5 MG TABLET PO SCH (20:29)
[2021-03-27 07:30] VITALS: BP 140/81
[2021-03-27] MEDS: ASPIRIN 325 MG TABLET PO SCH (08:21)
[2021-03-27] MEDS: ASCORBIC ACID 500 MG TABLET PO SCH (08:22)
[2021-03-27] MEDS: FAMOTIDINE 20 MG TABLET PO SCH (08:22)
[2021-03-27] MEDS: CLONAZEPAM 0.5 MG TABLET PO SCH (08:22)
[2021-03-27] MEDS: DOCUSATE SODIUM 100 MG CAPSULE PO SCH (08:23)
[2021-03-27] MEDS: risperiDONE 2 MG TABLET PO SCH (08:23)
[2021-03-27] MEDS: MULTIVITAMINS,THERAPEUTIC TABLET PO SCH (08:23)
[2021-03-27] MEDS: MEMANTINE HCL 10 MG TABLET PO SCH (08:23)
[2021-03-27] MEDS: BENZTROPINE MESYLATE 0.5 MG TABLET PO SCH (08:23)
[2021-03-27] MEDS: LITHIUM CARBONATE 150 MG CAPSULE PO SCH (08:34)
[2021-03-27] MEDS: GLUCERNA SHAKE 237 ML CAN PO SCH (08:36)
--- NOTE | 2021-03-27 10:00 | NUR ---
Called [facility] , report was given to Nuzhat Rojas.
--- NOTE | 2021-03-27 11:25 | NUR ---
Gps/Flight Steward- Discharged to [facility] via ambulance ,. Patient was well informed of the discharged plan. All belongings given back to patient. Discharged in good spirit, no distress, no complaints noted
== END 2021-03-27 11:30 | DRG 885 ==
LOC: EDSEX 21:28 → ER 21:28 → GPS 23:55
PROVIDERS: ADMIT Psychiatry & Neurology Psychosomatic Medicine; ATTEND Nurse Practitioner Acute Care
DX: F25.0 Schizoaffective disorder, bipolar type (principal); F01.50 Vascular dementia, unspecified severity, without behavioral disturbance, psychotic disturbance, mood disturbance, and anxiety; E78.5 Hyperlipidemia, unspecified; E11.9 Type 2 diabetes mellitus without complications; Z79.82 Long term (current) use of aspirin; Z73.6 Limitation of activities due to disability; R53.1 Weakness; Z20.822 Contact with and (suspected) exposure to COVID-19; Z79.899 Other long term (current) drug therapy
CPT/HCPCS: 36415; 70030-TC; 84443; 85025; 93005; 97161; A4663; G0480; J1200; J1630; J2060; J3486

== ENCOUNTER 2021-10-19 12:16 | Inpatient (IN) | payer MEDICARE, OTHER ==
[~2021-10-19] VITALS: Ht 167.6 cm; Wt 44.5 kg
[~2021-10-19 12:16] MED LIST: ACET-2154 PO; ASCO500C18 PO; ASPI-612 PO; ATOR80TA PO; BISA10SU61 RC; DOCU100C36 PO; DONE5TAB34 PO; FAMO40TA7 PO; GABA-532 PO; MAGN400O6 PO; MEMA10TA PO; MULT-594 PO; NA P133E RC; SENN-261 PO
[2021-10-19] MEDS ORDERED: LORAZEPAM 2 MG/1 ML VIAL IM ONE (12:30)
[2021-10-19] MEDS ORDERED: HALOPERIDOL LACTATE 5 MG/1 ML VIAL IM ONE (12:30)
[2021-10-19] MEDS ORDERED: diphenhydrAMINE 50 MG/1 ML VIAL IM ONE (12:30)
[2021-10-19] MEDS ORDERED: LORAZEPAM 2 MG/1 ML VIAL ONE (12:31)
[2021-10-19] MEDS ORDERED: diphenhydrAMINE 50 MG/1 ML VIAL ONE (12:31)
[2021-10-19] MEDS ORDERED: HALOPERIDOL LACTATE 5 MG/1 ML VIAL ONE (12:32)
[2021-10-19 12:39] LABS: HEMATOCRIT 36.3 % (36.7-47.1); MEAN CORPUSCULAR HEMOGLOBIN 32.6 uug (23.8-33.4); MEAN CORPUSCULAR VOLUME 96.6 fL (73.0-96.2); PLATELET COUNT (AUTO) 245 K/uL (152-348)
--- NOTE | 2021-10-19 12:40 | NUR ---
PT IS IN ROOM #1B. DR MEDINA EVALUATED THE PT.
[2021-10-19 12:44] LABS: CARBON DIOXIDE 31 mmol/L (21-32); CHLORIDE 104 mmol/L (98-107); CREATININE 0.8 mg/dL (0.6-1.3); GLUCOSE 81 mg/dL (74-106); POTASSIUM 3.9 mmol/L (3.5-5.1); UREA NITROGEN, BLOOD 12 mg/dL (7-18)
[2021-10-19 12:50] LABS: ALANINE AMINOTRANSFERASE 24 U/L (16-63); ALKALINE PHOSPHATASE 71 U/L (50-136); ASPARTATE AMINOTRANSFERASE 16 U/L (15-37); BILIRUBIN,DIRECT 0.1 mg/dL (0.0-0.2); BILIRUBIN,TOTAL 0.4 mg/dL (0.2-1.0); TOTAL PROTEIN, SERUM 6.8 g/dL (6.4-8.2)
[2021-10-19] MEDS ORDERED: DONE5TAB7 PO (12:52)
[2021-10-19] MEDS ORDERED: LITH300C2 PO (12:52)
[2021-10-19] MEDS ORDERED: AMIN30LI2 PO (12:52)
[2021-10-19] MEDS ORDERED: SENN-18 PO (12:52)
[2021-10-19] MEDS ORDERED: RISP1TAB7 PO (12:52)
[2021-10-19] MEDS ORDERED: RISP3TAB5 PO (12:52)
[2021-10-19] MEDS ORDERED: BENZ0.5T43 PO (12:52)
[2021-10-19] MEDS ORDERED: OMEG1CAP PO (12:52)
[2021-10-19 12:54] LABS: ACETAMINOPHEN < 2.0 ug/mL (10-30)
[2021-10-19 12:56] LABS: ETHANOL < 3 MG/DL (0-0)
[2021-10-19 13:05] LABS: *BILIRUBIN,URIN NEGATIVE (NEGATIVE); *BLOOD, URINE NEGATIVE (NEGATIVE); *CLARITY,URINE CLEAR (CLEAR); *COLOR,URINE YELLOW (YELLOW); *KETONES,URINE NEGATIVE (NEGATIVE); *UROBILINOGEN,URINE 0.2 E.U./dl (NORMAL); LEUKOCYTE ESTERASE ,URINE TRACE (NEGATIVE); NITRITE, URINE NEGATIVE (NEGATIVE); PH,URINE 5.5 (5.0-8.0); UGLUCOSE NEGATIVE (NEGATIVE)
[2021-10-19 13:17] LABS: *AMPHETAMINE, URINE NEGATIVE (NEGATIVE); *CANNABINOID, URINE NEGATIVE (NEGATIVE); *COCCAINE, URINE NEGATIVE (NEGATIVE); *OPIATE, URINE NEGATIVE (NEGATIVE); *PHENCYCLIDINE SCREEN,URINE NEGATIVE (NEGATIVE)
--- NOTE | 2021-10-19 13:21 | NUR ---
NICOLETTE RUIZ EVALUATED THE PT. PT WAS PLACED ON 51/50 HOLD DANGER TO OTHERS AND DANGER TO HIMSELF. PT IS RESTING IN BED COMFORTABLY. NO S/S OF ACUTE DISTRESS AT THIS TIME. CONTINUE TO MONITOR THE PT.
--- NOTE | 2021-10-19 14:10 | NUR ---
GPS: RECEIVED REPORT FROM ED RN ABOUT 66YO M PT BROUGHT IN BY AMBULANCE FROM [facility] FOR 5150 HOLD WITH PROBABLE CAUSE OF GRAVE DISABILITY. PER ADMISSION, PT WAS AGGRESSIVE TO STAFF, AGITATED, CONFUSED AND DISORIENTED. PT WAS DISORGANIZED AND NON COMPLIANT, IMPAIRED JUDGMENT AND POOR INSIGHT AND IMPULSE CONTROL. PT CANNOT PROVIDE FOR HIS FOOD, RETIREMENT OR CLOTHING DUE TO MENTAL DISORDER. AT ER, PT WAS LOUD AND GETTING OUT OF BED AND WAS ADMINISTERED WITH BENADRYL 25MG, ATIVAN 1MG AND HALDOL 5MG ALL IM. U/A NEGATIVE AND SINUS RHYTHM ON EKG. PT SKIN INTACT. PT WILL BE IN SERVICE OF DR BHAGAT PSYCHIATRIST AND DR TORRES, COMMUNITY RECREATION COORDINATOR.
--- NOTE | 2021-10-19 15:00 | NUR ---
PT WAS TRANSFERED TO [facility] ROOM #138B. REPORT WAS GIVEN TO RN MHU.
--- NOTE | 2021-10-19 15:02 | NUR ---
GPS: Nursing Notes: Admitted Notes: Patient admitted to [facility] on 5150 GD due to aggressive agitated behavior, noncompliant with care, disoriented, disorganized, he is aggressive, his judgment is impaired, poor insight, poor impulse control, he cannot provide for his food, assisted, or clothing due to a mental disorder. On face to face assessment, Patient is A/Ox1, impaired judgment, poor insight, disoriented, disorganized, confused, resistant with nursing care, clenching his fists when staff got near him, paranoid behavior, flat and angry affect, refusing nursing care, unkempt appearance, uncooperative, unable to formulate a viable plan for self care. Patient oriented to the unit, Patient's Rights Handbook give with admitting package on admission, patient throw the package on the floor, Dr. Taylor and Lori informed of admission by charge nurse, continue to monitor for safety, continue with treatment plan.
[2021-10-19] MEDS ORDERED: MAGNESIUM HYDROXIDE 30 ML LIQUID UDC PO PRN (15:30)
[2021-10-19] MEDS ORDERED: MAG HYDROX/AL HYDROX/SIMETH 30 ML LIQUID UDC PO PRN (15:30)
[2021-10-19] MEDS ORDERED: BLOOD SUGAR DIAGNOSTIC 1 EACH STRIP VI ONE (16:00)
[2021-10-19 16:20] LABS: BACTERIA,URINE NONE SEEN /HPF (NONE SEEN); RBC,URINE 0-3 /HPF (0-3); SQUAMOUS EPITHELIAL CELL,UR FEW /HPF (NONE SEEN); WBC,URINE 0-3 /HPF (0-3)
[2021-10-19 18:15] VITALS: BP 124/62
[2021-10-19] MEDS: LORAZEPAM 0.5 MG TABLET PO PRN (19:53)
--- NOTE | 2021-10-19 20:00 | NUR ---
received patient in his room in bed. he is noted awake A/O x 1. patient is able to understand basic Polish; however, he is unable to have a meaningful conversation with this commercial real estate underwriter. He is noted restless. Ativan 0.5mg PO PRN was given for agitation. V/S are stable. Patient in no distress. safety and fall precautions are in place. will continue to monitor.
[2021-10-19 20:06] VITALS: BP 120/64
[2021-10-19] MEDS: TEMAZEPAM 7.5 MG CAPSULE PO PRN (21:39)
[2021-10-19] MEDS: SENNOSIDES 1 TABLET PO SCH (21:39)
[2021-10-20] MEDS: LORAZEPAM 0.5 MG TABLET PO PRN ×2 (06:27→20:39)
[2021-10-20 07:30] VITALS: BP 111/73
[2021-10-20 08:06] LABS: CREATININE 0.9 mg/dL (0.6-1.3); POTASSIUM 3.6 mmol/L (3.5-5.1); TOTAL PROTEIN, SERUM 7.8 g/dL (6.4-8.2)
[2021-10-20] MEDS: MULTIVITAMINS,THERAPEUTIC TABLET PO SCH (08:36)
[2021-10-20] MEDS: FAMOTIDINE 20 MG TABLET PO SCH (08:36)
[2021-10-20] MEDS: OMEGA-3 FATTY ACIDS/FISH OIL CAPSULE PO SCH (08:36)
[2021-10-20] MEDS: DOCUSATE SODIUM 100 MG CAPSULE PO SCH ×2 (08:39→17:29)
[2021-10-20] MEDS: PROTEIN SUPPLEMENT (PROSTAT) 30 ML LIQUID PO SCH (08:39)
[2021-10-20] MEDS: BENZTROPINE MESYLATE 0.5 MG TABLET PO SCH ×3 (11:29→17:22)
[2021-10-20] MEDS: risperiDONE 1 MG TABLET PO SCH ×2 (11:29→17:22)
[2021-10-20] MEDS: LITHIUM CARBONATE 300 MG CAPSULE PO SCH ×2 (11:29→17:22)
--- NOTE | 2021-10-20 15:19 | NUR ---
Received patient awake in the hallway. Pt. is A/O X 1 to person. Pt. is restless, anxious, confused, disoriented. Pt. states "I don't wanna go out. Get me out of here" "Get some help" Patient picks up things in the air with his fingertips. Pt. shouts when he gets frustrated. Compliant with medications. Reality orientation provided. Fall and safety precautions implemented.
[2021-10-20 16:00] VITALS: BP 143/85
[2021-10-20 20:00] VITALS: BP 129/96
[2021-10-20] MEDS: SENNOSIDES 1 TABLET PO SCH (20:39)
[2021-10-20] MEDS: risperiDONE 2 MG TABLET PO SCH (20:39)
[2021-10-21] MEDS: TEMAZEPAM 7.5 MG CAPSULE PO PRN ×2 (01:07→23:26)
--- NOTE | 2021-10-21 04:16 | NUR ---
GPS NOTES: [facility], A&0x1. hallucination present, responding to internal stimuli as evidence by talking to self and reaching out to air, attempt to re-direct patient however, language barrier is present. Patient repeats words that he hears from other peers, easily irritable and potential for aggressive behavior. Provided snacks, good appetite. Needs total assistance to care. Compliant with medications. Ativan given and restoril prn. Effective. Patient is calm and slept mostly at night. close supervision in place. safety precautions observed at all times.
[2021-10-21 07:30] VITALS: BP 91/57
[2021-10-21] MEDS: OMEGA-3 FATTY ACIDS/FISH OIL CAPSULE PO SCH (08:54)
[2021-10-21] MEDS: LITHIUM CARBONATE 300 MG CAPSULE PO SCH ×2 (08:54→17:02)
[2021-10-21] MEDS: FAMOTIDINE 20 MG TABLET PO SCH (08:54)
[2021-10-21] MEDS: risperiDONE 1 MG TABLET PO SCH ×3 (08:54→17:02)
[2021-10-21] MEDS: BENZTROPINE MESYLATE 0.5 MG TABLET PO SCH ×3 (08:54→17:02)
[2021-10-21] MEDS: DOCUSATE SODIUM 100 MG CAPSULE PO SCH ×2 (08:55→17:02)
[2021-10-21] MEDS: MULTIVITAMINS,THERAPEUTIC TABLET PO SCH (08:55)
[2021-10-21] MEDS: PROTEIN SUPPLEMENT (PROSTAT) 30 ML LIQUID PO SCH (08:56)
[2021-10-21] MEDS: LORAZEPAM 0.5 MG TABLET PO PRN ×2 (10:03→19:36)
[2021-10-21] MEDS: GLUCERNA SHAKE 237 ML CAN PO SCH ×2 (12:46→17:18)
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
[2021-10-21 15:06] VITALS: BP 122/88
[2021-10-21 20:00] VITALS: BP 107/67
--- NOTE | 2021-10-21 20:30 | NUR ---
RECEIVED PATIENT SITTING IN A SHAAN CHAIR NEAR THE NURSING STATION FOR SAFETY. HE IS NOTED A/O X 1 (NAME). HE IS NOTED CONFUSED ANXIOUS AND HYPERVERBAL. PATIENT WAS GIVEN ATIVAN 0.5MG PO PRN FOR ANXIETY. PATIENT IS ABLE TO UNDERSTAND SOME BASIC KYRGYZ; HOWEVER, HE IS UNABLE TO HAVE A MEANINGFUL CONVERSATION WITH THIS WAN SUPPORT SPECIALIST. HE WAS ALSO OBSERVED THAT PATIENT IS HAVING VISUAL HALLUCINATION AEB PATIENT IS REACHING OUT TO UNSEEN STUFF IN THE SPACE, HE STARES AT THE WALL AND CELLING. HE HAS POOR EYE CONTACT AND HE TALKS TO HIMSELF. PATIENT NEEDS REDIRECTION AND REALITY CHECKS. HIS V/S ARE STABLE. PATIENT IN NO DISTRESS. HE WAS GIVEN PO FLUIDS AND SNACKS. SAFETY AND FALL PRECAUTIONS ARE IN PLACE. WILL CONTINUE TO MONITOR.
[2021-10-21] MEDS: risperiDONE 2 MG TABLET PO SCH (20:45)
[2021-10-21] MEDS: SENNOSIDES 1 TABLET PO SCH (20:45)
[2021-10-22 07:30] VITALS: BP 90/50
[2021-10-22] MEDS: OMEGA-3 FATTY ACIDS/FISH OIL CAPSULE PO SCH (09:24)
[2021-10-22] MEDS: DOCUSATE SODIUM 100 MG CAPSULE PO SCH ×2 (09:24→17:35)
[2021-10-22] MEDS: LITHIUM CARBONATE 300 MG CAPSULE PO SCH ×2 (09:24→17:35)
[2021-10-22] MEDS: MULTIVITAMINS,THERAPEUTIC TABLET PO SCH (09:24)
[2021-10-22] MEDS: risperiDONE 1 MG TABLET PO SCH ×3 (09:24→17:35)
[2021-10-22] MEDS: BENZTROPINE MESYLATE 0.5 MG TABLET PO SCH ×3 (09:24→17:35)
[2021-10-22] MEDS: FAMOTIDINE 20 MG TABLET PO SCH (09:24)
[2021-10-22] MEDS: GLUCERNA SHAKE 237 ML CAN PO SCH ×3 (09:25→17:35)
[2021-10-22] MEDS: PROTEIN SUPPLEMENT (PROSTAT) 30 ML LIQUID PO SCH (09:45)
[2021-10-22] MEDS: LORAZEPAM 1 MG TABLET PO PRN ×2 (10:12→21:24)
[2021-10-22] MEDS: OLANZAPINE 2.5 MG TABLET PO SCH ×3 (11:43→17:35)
--- NOTE | 2021-10-22 13:03 | NUR ---
CRISS Initial Discharge Note: Pt currently resides at [facility] located at [address] [place] [address] ([phone]). CRISS contacted [facility] and left a voicemail for a call back for the admissions team regarding pt's acceptance back upon discharge. Pt does not have any family contact. CRISS will continue to work with pt, family and MD to ensure a safe and proper discharge plan.
--- NOTE | 2021-10-22 13:06 | NUR ---
Firearms Report: Plastic Surgery Manager completed and submitted a DOJ firearms report for 5150 grave disability certifications. A copy of report has been placed in patient chart.
--- NOTE | 2021-10-22 13:06 | NUR ---
SW Family Contact: Pt does not appear to have any family contact.
--- NOTE | 2021-10-22 15:30 | NUR ---
Received patient sleeping in his room. Pt. is A/O X 1 to self. Pt. is combative, agitated, confused, disoriented. Pt. states "Excuse me, please" multiple times. Ativan 1 mg was given at 10:15, semi effective. Compliant with medications. Reality orientation provided. Fall and safety precautions implemented.
[2021-10-22 16:30] VITALS: BP 103/73
[2021-10-22 20:13] VITALS: BP 105/52
[2021-10-22] MEDS: risperiDONE 2 MG TABLET PO SCH (20:34)
[2021-10-22] MEDS: SENNOSIDES 1 TABLET PO SCH (20:34)
[2021-10-22] MEDS: TEMAZEPAM 7.5 MG CAPSULE PO PRN (22:59)
[2021-10-23] MEDS: FAMOTIDINE 20 MG TABLET PO SCH (08:36)
[2021-10-23] MEDS: MULTIVITAMINS,THERAPEUTIC TABLET PO SCH (08:36)
[2021-10-23] MEDS: LITHIUM CARBONATE 300 MG CAPSULE PO SCH ×2 (08:36→17:00)
[2021-10-23] MEDS: risperiDONE 1 MG TABLET PO SCH ×3 (08:36→17:00)
[2021-10-23] MEDS: OMEGA-3 FATTY ACIDS/FISH OIL CAPSULE PO SCH (08:37)
[2021-10-23] MEDS: DOCUSATE SODIUM 100 MG CAPSULE PO SCH ×2 (08:37→17:00)
[2021-10-23] MEDS: BENZTROPINE MESYLATE 0.5 MG TABLET PO SCH ×3 (08:39→17:00)
[2021-10-23] MEDS: PROTEIN SUPPLEMENT (PROSTAT) 30 ML LIQUID PO SCH (08:40)
[2021-10-23] MEDS: GLUCERNA SHAKE 237 ML CAN PO SCH ×3 (08:40→17:00)
[2021-10-23] MEDS: OLANZAPINE 2.5 MG TABLET PO SCH ×2 (08:41→12:13)
[2021-10-23 09:12] VITALS: BP 115/71
[2021-10-23] MEDS: LORAZEPAM 1 MG TABLET PO PRN ×2 (14:19→20:19)
[2021-10-23 16:02] VITALS: BP 108/77
--- NOTE | 2021-10-23 16:35 | NUR ---
patient is confused and disoriented agitated at time, assisted patient up to janeth-chair for close monitoring. patient is on and off yelling out poor insight and poor judgement .Ativan 1 mg given as prn ordered, total care to all ADLS , will continue close monitoring.
[2021-10-23] MEDS: OLANZAPINE 5 MG TABLET PO SCH (17:00)
[2021-10-23] MEDS: SENNOSIDES 1 TABLET PO SCH (20:19)
[2021-10-23] MEDS: risperiDONE 2 MG TABLET PO SCH (20:19)
[2021-10-23] MEDS: TEMAZEPAM 7.5 MG CAPSULE PO PRN (21:02)
[2021-10-23 21:06] VITALS: BP 129/88
--- NOTE | 2021-10-24 05:27 | NUR ---
GPS NOTES: [facility]. Remains confused and disoriented. Yells when agitated, potential for aggressive behavior. Reaching out to air. Needs constant redirection but unable to comprehend d/t current state. Needs assistance to perform ADL's. Provided snacks and fluid w/ good appetite. Patient tries to kick staff when providing pericare. Tamazepam and ativan given. Effective. Safely transferred patient to bed. Safety measure in place. side rails up, bed alarm and bed at lowest position. Closely monitoring observed.
[2021-10-24 07:49] VITALS: BP 117/65
[2021-10-24] MEDS: MULTIVITAMINS,THERAPEUTIC TABLET PO SCH (09:44)
[2021-10-24] MEDS: DOCUSATE SODIUM 100 MG CAPSULE PO SCH ×2 (09:44→17:32)
[2021-10-24] MEDS: LITHIUM CARBONATE 300 MG CAPSULE PO SCH ×2 (09:44→17:32)
[2021-10-24] MEDS: OLANZAPINE 5 MG TABLET PO SCH ×3 (09:44→17:31)
[2021-10-24] MEDS: FAMOTIDINE 20 MG TABLET PO SCH (09:44)
[2021-10-24] MEDS: OMEGA-3 FATTY ACIDS/FISH OIL CAPSULE PO SCH (09:44)
[2021-10-24] MEDS: risperiDONE 1 MG TABLET PO SCH ×3 (09:45→17:32)
[2021-10-24] MEDS: BENZTROPINE MESYLATE 0.5 MG TABLET PO SCH ×3 (09:45→17:32)
[2021-10-24] MEDS: GLUCERNA SHAKE 237 ML CAN PO SCH ×3 (09:45→17:32)
[2021-10-24] MEDS: PROTEIN SUPPLEMENT (PROSTAT) 30 ML LIQUID PO SCH (09:46)
[2021-10-24] MEDS: LORAZEPAM 1 MG TABLET PO PRN ×2 (12:48→19:50)
[2021-10-24 14:27] LABS: HEMATOCRIT 44.2 % (36.7-47.1); MEAN CORPUSCULAR HEMOGLOBIN 32.1 uug (23.8-33.4); MEAN CORPUSCULAR VOLUME 95.5 fL (73.0-96.2); PLATELET COUNT (AUTO) 293 K/uL (152-348)
[2021-10-24 14:50] LABS: BILIRUBIN,TOTAL 0.6 mg/dL (0.2-1.0); POTASSIUM 4.3 mmol/L (3.5-5.1); TOTAL PROTEIN, SERUM 7.7 g/dL (6.4-8.2)
--- NOTE | 2021-10-24 15:50 | NUR ---
Received patient sleeping in his room. Pt. is A/O X 1 to self. Pt. is restless, agitated, keeps yelling "Somebody help me" "Excuse me" Patient is confused and disoriented. Ativan 1 mg was given at 12:48, effective. Compliant with medications and cooperative with nursing care. Reassurance given. Fall and safety precautions implemented.
[2021-10-24 15:54] VITALS: BP 107/76
[2021-10-24 19:45] VITALS: BP 121/84
[2021-10-24] MEDS: SENNOSIDES 1 TABLET PO SCH (20:20)
[2021-10-24] MEDS: risperiDONE 2 MG TABLET PO SCH (20:20)
[2021-10-24] MEDS: TEMAZEPAM 7.5 MG CAPSULE PO PRN (21:00)
[2021-10-25] MEDS: LORAZEPAM 1 MG TABLET PO PRN (01:50)
--- NOTE | 2021-10-25 06:29 | NUR ---
GPS: Pt.slept 4.45 last night although currently asleep still at this time. Had episodes of screaming/talking to self last night. Easily agitated when being re-directed. Behavior remains unpredictable. Fall precautions observed. Will continue to monitor.
[2021-10-25 08:02] VITALS: BP 114/88
[2021-10-25] MEDS: ACETAMINOPHEN 325 MG TABLET PO PRN ×2 (10:01→16:24)
[2021-10-25] MEDS: OMEGA-3 FATTY ACIDS/FISH OIL CAPSULE PO SCH (10:02)
[2021-10-25] MEDS: FAMOTIDINE 20 MG TABLET PO SCH (10:02)
[2021-10-25] MEDS: DOCUSATE SODIUM 100 MG CAPSULE PO SCH ×2 (10:02→17:53)
[2021-10-25] MEDS: OLANZAPINE 5 MG TABLET PO SCH ×4 (10:02→17:53)
[2021-10-25] MEDS: MULTIVITAMINS,THERAPEUTIC TABLET PO SCH (10:02)
[2021-10-25] MEDS: risperiDONE 1 MG TABLET PO SCH ×4 (10:02→17:53)
[2021-10-25] MEDS: BENZTROPINE MESYLATE 0.5 MG TABLET PO SCH ×4 (10:02→17:53)
[2021-10-25] MEDS: LITHIUM CARBONATE 300 MG CAPSULE PO SCH ×2 (10:02→17:53)
[2021-10-25] MEDS: PROTEIN SUPPLEMENT (PROSTAT) 30 ML LIQUID PO SCH (10:03)
[2021-10-25] MEDS: GLUCERNA SHAKE 237 ML CAN PO SCH ×3 (10:03→17:54)
--- NOTE | 2021-10-25 11:00 | NUR ---
Court hearing was scheduled this morning to continuing treatment under 5250 hold, and it was granted by Crocheter Radhames Chavez as Gravely Disabled and Danger to Others.
--- NOTE | 2021-10-25 11:02 | NUR ---
GPS: Nursing Notes: Thought Disorder: Patient is awake and responding to her name, poor anger management, resistant with nursing care, labile, unpredictable behavior, resistant with nursing care, loud and pressured speech, disoriented, disorganized, confused, impaired judgment, unable to formulate a viable plan for self care, continue to monitor for safety, episodes of pushing staff away when assisting with ADL's, internally preoccupied, responding to internal stimuli by shouting to unseen others, continue with treatment plan.
--- NOTE | 2021-10-25 14:02 | NUR ---
CRISS Discharge Update: CRISS contacted [facility] located at [address] [place] [address] ([phone]) and spoke with Erlinda in admissions who stated that they no longer have the ability to provide the skills need for the pt's continuation of care and to look for other placement. CRISS informed Erlinda that this SW will contact the facility in the event that the pt does not have an additional accepting facility upon discharge.
--- NOTE | 2021-10-25 15:24 | NUR ---
SNF Referral: SW faxed patient's referral packet including: History and Physical, Consultation, Progress Notes, Medication List and Labs to the following facilities for review and possible long-term placement: [facility] located at [address] [place], [place] [address] ([phone]) F: [phone] and spoke with Wesley.
[2021-10-25 16:02] VITALS: BP 100/61
[2021-10-25 19:36] VITALS: BP 101/56
[2021-10-25] MEDS: SENNOSIDES 1 TABLET PO SCH (20:10)
[2021-10-25] MEDS: risperiDONE 2 MG TABLET PO SCH (20:10)
--- NOTE | 2021-10-25 21:01 | NUR ---
Received Patient in his room in bed sleeping but easily arousable. He is noted A/O only to his name. His Tanzanian is limited; however, he is a poor historian. he is forgetful. he is restless at times. no aggressive/combative bx noted at this time. patient is able to accept care. His V/S are stable. he is in no distress. PO fluids and snacks were given. he is reassured for his safety. safety and fall precautions are in place. will continue to monitor.
[2021-10-26 07:38] VITALS: BP 111/71
[2021-10-26] MEDS: ACETAMINOPHEN 325 MG TABLET PO PRN ×2 (08:41→15:28)
[2021-10-26] MEDS: DOCUSATE SODIUM 100 MG CAPSULE PO SCH ×2 (08:44→16:19)
[2021-10-26] MEDS: OLANZAPINE 5 MG TABLET PO SCH ×3 (08:44→16:19)
[2021-10-26] MEDS: risperiDONE 1 MG TABLET PO SCH ×3 (08:44→16:19)
[2021-10-26] MEDS: MULTIVITAMINS,THERAPEUTIC TABLET PO SCH (08:44)
[2021-10-26] MEDS: LITHIUM CARBONATE 300 MG CAPSULE PO SCH ×2 (08:44→16:19)
[2021-10-26] MEDS: FAMOTIDINE 20 MG TABLET PO SCH (08:44)
[2021-10-26] MEDS: BENZTROPINE MESYLATE 0.5 MG TABLET PO SCH ×3 (08:44→16:19)
[2021-10-26] MEDS: OMEGA-3 FATTY ACIDS/FISH OIL CAPSULE PO SCH (08:44)
[2021-10-26] MEDS: PROTEIN SUPPLEMENT (PROSTAT) 30 ML LIQUID PO SCH (08:45)
[2021-10-26] MEDS: GLUCERNA SHAKE 237 ML CAN PO SCH ×3 (08:45→16:20)
--- NOTE | 2021-10-26 09:56 | NUR ---
SW Discharge Update: Jacki from [facility] admissions located at [id number] [place] [phone] ([phone]) F: [phone] stated to this card writer hand that pt is accepted to their facility upon discharge. Pt does not have family contact. MD is aware of the discharge update.
[2021-10-26] MEDS: LORAZEPAM 1 MG TABLET PO PRN ×2 (10:00→16:37)
--- NOTE | 2021-10-26 11:33 | NUR ---
GPS: Nursing Notes: Thought Disorder: Patient is awake and responding to his name, impaired judgment, poor insight, disoriented, disorganized, confused, ambulatory with fww and assistance, unsteady gait, overly disruptive by constantly shouting, believes that he is going home today, "I WANT TO GO HOME..", redirected and reoriented during shift, unable to formulate a viable plan for self care, internally preoccupied, resistant with nursing care, striking out when assisting him with diaper change, continue to monitor for safety, continue with treatment plan.
[2021-10-26 16:05] VITALS: BP 105/62
[2021-10-26 19:43] VITALS: BP 112/66
[2021-10-26] MEDS: risperiDONE 2 MG TABLET PO SCH (20:08)
[2021-10-26] MEDS: SENNOSIDES 1 TABLET PO SCH (20:08)
--- NOTE | 2021-10-27 06:26 | NUR ---
GPS: Pt.was combative,uncooperative during incontinence care earlier despite calm approach by staff. Re-directed prn. Talks to self and internally pre-occupied. Fall precautions observed. Will continue to monitor.
[2021-10-27] MEDS: OLANZAPINE 5 MG TABLET PO SCH ×3 (09:22→16:50)
[2021-10-27] MEDS: MULTIVITAMINS,THERAPEUTIC TABLET PO SCH (09:22)
[2021-10-27] MEDS: BENZTROPINE MESYLATE 0.5 MG TABLET PO SCH ×3 (09:22→16:50)
[2021-10-27] MEDS: OMEGA-3 FATTY ACIDS/FISH OIL CAPSULE PO SCH (09:22)
[2021-10-27] MEDS: LITHIUM CARBONATE 300 MG CAPSULE PO SCH ×2 (09:22→16:50)
[2021-10-27] MEDS: DOCUSATE SODIUM 100 MG CAPSULE PO SCH ×2 (09:22→16:50)
[2021-10-27] MEDS: PROTEIN SUPPLEMENT (PROSTAT) 30 ML LIQUID PO SCH (09:23)
[2021-10-27] MEDS: risperiDONE 1 MG TABLET PO SCH ×2 (09:23→20:13)
[2021-10-27] MEDS: GLUCERNA SHAKE 237 ML CAN PO SCH ×3 (09:23→16:50)
[2021-10-27] MEDS: FAMOTIDINE 20 MG TABLET PO SCH (09:23)
[2021-10-27] MEDS: risperiDONE 0.5 MG TABLET PO SCH ×2 (12:31→16:50)
[2021-10-27 16:00] VITALS: BP 135/88
--- NOTE | 2021-10-27 18:27 | NUR ---
GPS: PT COMBATIVE AND RESISTIVE WITH ADL'S, HITTING STAFF GIVING SHOWER THIS AFTERNOON. PT WITH EPISODE OF SCREAMING. RE-DIRECTED PT AND FOLLOWS COMMAND FOR A SECOND AND GOES BACK TO SAME BEHAVIOR. PT EASILY GETS AGITATED AND CONFUSED, POOR JUDGMENT AND INSIGHT.
[2021-10-27 19:49] VITALS: BP 129/81
[2021-10-27] MEDS: ATORVASTATIN 20 MG TABLET PO SCH (20:13)
[2021-10-27] MEDS: TEMAZEPAM 7.5 MG CAPSULE PO PRN (20:14)
[2021-10-27] MEDS: SENNOSIDES 1 TABLET PO SCH (20:14)
[2021-10-27] MEDS: LORAZEPAM 1 MG TABLET PO PRN (21:33)
--- NOTE | 2021-10-28 04:59 | NUR ---
Patient will yell , sing , chant and swear , loudly at random times. The patient is confused, impulsive and unable to engage in any meaningful conversation. Food and fluids were provided to him with assistance.The patient is resistant to care and was striking out at staff. Safety Stratiges are in place and continuing to monitor for further aggressive and combative behavior. Patient has slept 6.45 hours so far.
[2021-10-28] MEDS: GLUCERNA SHAKE 237 ML CAN PO SCH ×3 (08:00→17:19)
[2021-10-28 08:21] VITALS: BP 121/73
[2021-10-28] MEDS: OMEGA-3 FATTY ACIDS/FISH OIL CAPSULE PO SCH (09:51)
[2021-10-28] MEDS: FAMOTIDINE 20 MG TABLET PO SCH (09:52)
[2021-10-28] MEDS: risperiDONE 0.5 MG TABLET PO SCH ×3 (09:52→17:19)
[2021-10-28] MEDS: DOCUSATE SODIUM 100 MG CAPSULE PO SCH ×2 (09:52→17:24)
[2021-10-28] MEDS: PROTEIN SUPPLEMENT (PROSTAT) 30 ML LIQUID PO SCH (09:52)
[2021-10-28] MEDS: OLANZAPINE 5 MG TABLET PO SCH ×3 (09:52→17:19)
[2021-10-28] MEDS: BENZTROPINE MESYLATE 0.5 MG TABLET PO SCH ×3 (09:52→17:18)
[2021-10-28] MEDS: MULTIVITAMINS,THERAPEUTIC TABLET PO SCH (09:52)
[2021-10-28] MEDS: LITHIUM CARBONATE 300 MG CAPSULE PO SCH ×2 (09:52→17:19)
[2021-10-28 16:00] VITALS: BP 118/79
--- NOTE | 2021-10-28 18:50 | NUR ---
GPS: PT ON CHAIR FOR SAFETY, LOUD, SINGS, CHANTS, WITH EPISODE OF ECHOLALIA, ANSWERING BACK OTHER PT CONVERSATION, EASILY GETS IRRITATED BY LOUD NOISE. PT COMBATIVE WHEN CHANGING ON DIAPERS/ ADL'S AND TWO PERSON ASSIST, WITH EPISODE OF TRYING TO KICK AND HITTING STAFF. SOMETIMES, PT IS REDIRECTABLE BUT EASILY GOES BACK TO SAME BEHAVIOR OF SCREAMING. DENIES PAIN OR DISCOMFORT.
[2021-10-28] MEDS: risperiDONE 1 MG TABLET PO SCH (20:14)
[2021-10-28] MEDS: ATORVASTATIN 20 MG TABLET PO SCH (20:14)
[2021-10-28] MEDS: SENNOSIDES 1 TABLET PO SCH (20:14)
[2021-10-28] MEDS: LORAZEPAM 1 MG TABLET PO PRN (20:14)
[2021-10-28] MEDS: TEMAZEPAM 7.5 MG CAPSULE PO PRN (21:06)
[2021-10-29] MEDS: LORAZEPAM 1 MG TABLET PO PRN ×2 (01:27→20:41)
[2021-10-29 07:49] VITALS: BP 114/81
[2021-10-29] MEDS: MULTIVITAMINS,THERAPEUTIC TABLET PO SCH (09:20)
[2021-10-29] MEDS: OMEGA-3 FATTY ACIDS/FISH OIL CAPSULE PO SCH (09:20)
[2021-10-29] MEDS: FAMOTIDINE 20 MG TABLET PO SCH (09:20)
[2021-10-29] MEDS: risperiDONE 0.5 MG TABLET PO SCH ×3 (09:20→16:27)
[2021-10-29] MEDS: LITHIUM CARBONATE 300 MG CAPSULE PO SCH ×2 (09:20→16:27)
[2021-10-29] MEDS: GLUCERNA SHAKE 237 ML CAN PO SCH ×3 (09:21→16:28)
[2021-10-29] MEDS: OLANZAPINE 5 MG TABLET PO SCH ×3 (09:21→16:27)
[2021-10-29] MEDS: BENZTROPINE MESYLATE 0.5 MG TABLET PO SCH ×3 (09:21→16:27)
[2021-10-29] MEDS: DOCUSATE SODIUM 100 MG CAPSULE PO SCH ×2 (09:21→16:27)
[2021-10-29] MEDS: PROTEIN SUPPLEMENT (PROSTAT) 30 ML LIQUID PO SCH ×3 (09:21→16:28)
[2021-10-29 16:18] VITALS: BP 109/82
--- NOTE | 2021-10-29 17:34 | NUR ---
GPS: PT ON CHAIR FOR SAFETY. COMPLIANT WITH MEDS AND CARE. PT WITH EPISODE OF SUDDEN SCREAMING SPECIALLY WITH NOISE. REDIRECTABLE BUT EASILY FORGETS. ALSO LIKES REPEATING WORKS AND TALKING TO SELF. EASILY GETS IRRITATED. PT COMBATIVE WITH ADL'S LIKE WITH DIAPER CHANGE OR WHILE REPOSITIONING ON CHAIR. ASSISTED WITH MEALS.
[2021-10-29] MEDS: SENNOSIDES 1 TABLET PO SCH (20:42)
[2021-10-29] MEDS: risperiDONE 1 MG TABLET PO SCH (20:42)
[2021-10-29] MEDS: ATORVASTATIN 20 MG TABLET PO SCH (20:43)
[2021-10-29 20:48] VITALS: BP 148/96
--- NOTE | 2021-10-30 04:31 | NUR ---
Patient was calmer last night. This headline writer was slow when helping him and explained the process to him of changing and turning during the night. The patient did make a fist at the staff, but was less combative then the previous nights. Oral care and a shower were given with 2 person max assist. Fluids encouraged along with a snack. Safety stratiges are in place and total sleep hours were 6.45
[2021-10-30] MEDS: FAMOTIDINE 20 MG TABLET PO SCH ×2 (05:37→09:27)
[2021-10-30] MEDS: LORAZEPAM 1 MG TABLET PO PRN ×2 (05:37→11:49)
[2021-10-30 07:47] VITALS: BP 126/75
[2021-10-30] MEDS: ACETAMINOPHEN 325 MG TABLET PO PRN ×2 (08:31→16:22)
[2021-10-30] MEDS: BENZTROPINE MESYLATE 0.5 MG TABLET PO SCH ×3 (09:27→16:10)
[2021-10-30] MEDS: MULTIVITAMINS,THERAPEUTIC TABLET PO SCH (09:27)
[2021-10-30] MEDS: risperiDONE 0.5 MG TABLET PO SCH ×3 (09:27→16:10)
[2021-10-30] MEDS: OLANZAPINE 5 MG TABLET PO SCH ×3 (09:27→16:10)
[2021-10-30] MEDS: LITHIUM CARBONATE 300 MG CAPSULE PO SCH ×2 (09:28→16:10)
[2021-10-30] MEDS: GLUCERNA SHAKE 237 ML CAN PO SCH ×3 (09:28→16:11)
[2021-10-30] MEDS: DOCUSATE SODIUM 100 MG CAPSULE PO SCH ×2 (09:29→16:10)
[2021-10-30] MEDS: OMEGA-3 FATTY ACIDS/FISH OIL CAPSULE PO SCH (09:29)
[2021-10-30] MEDS: PROTEIN SUPPLEMENT (PROSTAT) 30 ML LIQUID PO SCH ×3 (09:30→16:11)
[2021-10-30 16:03] VITALS: BP 105/70
--- NOTE | 2021-10-30 17:48 | NUR ---
GPS: Nursing Notes: Thought Disorder: Patient is awake and responding to his name, labile, unpredictable behavior, episodes of shouting to unseen others, resistant with nursing care, but compliant with his medication, internally preoccupied, unable to formulate a viable plan for self care, disoriented, disorganized, poor insight, impaired judgment, continue to monitor for safety, continue with treatment plan.
[2021-10-30] MEDS: ATORVASTATIN 20 MG TABLET PO SCH (21:12)
[2021-10-30] MEDS: SENNOSIDES 1 TABLET PO SCH (21:12)
[2021-10-30] MEDS: risperiDONE 1 MG TABLET PO SCH (21:12)
[2021-10-30] MEDS: TEMAZEPAM 7.5 MG CAPSULE PO PRN (22:58)
[2021-10-31 07:30] VITALS: BP 106/78
[2021-10-31 07:33] LABS: HEMATOCRIT 42.7 % (36.7-47.1); MEAN CORPUSCULAR HEMOGLOBIN 32.8 uug (23.8-33.4); MEAN CORPUSCULAR VOLUME 96.7 fL (73.0-96.2); PLATELET COUNT (AUTO) 252 K/uL (152-348)
[2021-10-31 08:03] LABS: CREATININE 0.9 mg/dL (0.6-1.3); POTASSIUM 4.1 mmol/L (3.5-5.1); TOTAL PROTEIN, SERUM 7.8 g/dL (6.4-8.2)
[2021-10-31] MEDS: DOCUSATE SODIUM 100 MG CAPSULE PO SCH ×2 (08:22→16:32)
[2021-10-31] MEDS: ACETAMINOPHEN 325 MG TABLET PO PRN ×2 (08:22→16:33)
[2021-10-31] MEDS: risperiDONE 0.5 MG TABLET PO SCH ×3 (08:23→16:33)
[2021-10-31] MEDS: BENZTROPINE MESYLATE 0.5 MG TABLET PO SCH ×3 (08:23→16:33)
[2021-10-31] MEDS: OMEGA-3 FATTY ACIDS/FISH OIL CAPSULE PO SCH (08:23)
[2021-10-31] MEDS: OLANZAPINE 5 MG TABLET PO SCH ×3 (08:23→16:32)
[2021-10-31] MEDS: LITHIUM CARBONATE 300 MG CAPSULE PO SCH ×2 (08:23→16:33)
[2021-10-31] MEDS: MULTIVITAMINS,THERAPEUTIC TABLET PO SCH (08:24)
[2021-10-31] MEDS: GLUCERNA SHAKE 237 ML CAN PO SCH ×3 (08:25→16:33)
[2021-10-31] MEDS: PROTEIN SUPPLEMENT (PROSTAT) 30 ML LIQUID PO SCH ×3 (08:26→16:34)
[2021-10-31] MEDS: FAMOTIDINE 20 MG TABLET PO SCH (08:29)
[2021-10-31] MEDS: LORAZEPAM 1 MG TABLET PO PRN (12:11)
--- NOTE | 2021-10-31 12:46 | NUR ---
GPS: Nursing Notes: Thought Disorder: Patient is awake and responding to his name, poor insight, impaired judgment, resistant with nursing care by hitting staff when helping to change wet diaper, responding to internal stimuli by shouting to unseen others, redirected and reoriented to reality, but resistant with nursing care, labile, unpredictable behavior, continue to monitor for safety, unable to formulate a viable plan for self care, continue with treatment plan.
[2021-10-31 15:05] VITALS: BP 99/66
[2021-10-31 20:12] VITALS: BP 101/62
[2021-10-31] MEDS: ATORVASTATIN 20 MG TABLET PO SCH (21:04)
[2021-10-31] MEDS: risperiDONE 1 MG TABLET PO SCH (21:04)
[2021-10-31] MEDS: SENNOSIDES 1 TABLET PO SCH (21:05)
[2021-10-31] MEDS: TEMAZEPAM 7.5 MG CAPSULE PO PRN (22:49)
[2021-11-01 07:55] VITALS: BP 133/83
[2021-11-01] MEDS: OMEGA-3 FATTY ACIDS/FISH OIL CAPSULE PO SCH (08:53)
[2021-11-01] MEDS: GLUCERNA SHAKE 237 ML CAN PO SCH ×3 (08:53→17:02)
[2021-11-01] MEDS: MULTIVITAMINS,THERAPEUTIC TABLET PO SCH (08:53)
[2021-11-01] MEDS: risperiDONE 0.5 MG TABLET PO SCH (08:53)
[2021-11-01] MEDS: FAMOTIDINE 20 MG TABLET PO SCH (08:54)
[2021-11-01] MEDS: DOCUSATE SODIUM 100 MG CAPSULE PO SCH ×2 (08:54→17:01)
[2021-11-01] MEDS: OLANZAPINE 5 MG TABLET PO SCH ×4 (08:54→20:26)
[2021-11-01] MEDS: PROTEIN SUPPLEMENT (PROSTAT) 30 ML LIQUID PO SCH ×3 (08:54→17:02)
[2021-11-01] MEDS: ACETAMINOPHEN 325 MG TABLET PO PRN ×2 (08:54→17:01)
[2021-11-01] MEDS: BENZTROPINE MESYLATE 0.5 MG TABLET PO SCH ×3 (08:54→17:01)
[2021-11-01] MEDS: LITHIUM CARBONATE 300 MG CAPSULE PO SCH ×2 (08:54→17:01)
[2021-11-01] MEDS: LORAZEPAM 1 MG TABLET PO PRN ×2 (11:32→20:26)
[2021-11-01] MEDS: risperiDONE 2 MG TABLET PO SCH ×2 (12:16→17:01)
--- NOTE | 2021-11-01 12:56 | NUR ---
GPS: Nursing Notes: Thought Disorder: Patient is awake and responding to his name, unpredictable behavior, resistant with nursing care, responding to internal stimuli by shouting to unseen others in Armenian, A/Ox1, threw milk at staff when helping him with feeding, redirected and reoriented during shift, setting limits, but unable to formulate a viable plan for self care, unkempt appearance, poor anger management, continue to monitor for safety, continue with treatment plan.
[2021-11-01 15:54] VITALS: BP 121/79
[2021-11-01] MEDS: risperiDONE 1 MG TABLET PO SCH (20:27)
[2021-11-01] MEDS: ATORVASTATIN 20 MG TABLET PO SCH (20:27)
[2021-11-01] MEDS: SENNOSIDES 1 TABLET PO SCH (20:27)
[2021-11-01 21:58] VITALS: BP 140/89
--- NOTE | 2021-11-02 06:32 | NUR ---
At the start of the shift, this patient was in bed, yelling and trying to get out. This tag writer put the patient in a janeth chair and assisted him with food and fluids. The patient remained angry, impulsive and loud. Unable to engage in a conversation or to let his needs known. A few hours later the patient was put in bed and slept for 7.45 hours. Safety Stratiges are in place. Patient is less combative at this time.
[2021-11-02 07:30] VITALS: BP 125/78
[2021-11-02] MEDS: LORAZEPAM 1 MG TABLET PO PRN ×2 (07:51→16:59)
[2021-11-02] MEDS: ACETAMINOPHEN 325 MG TABLET PO PRN (08:31)
[2021-11-02] MEDS: MULTIVITAMINS,THERAPEUTIC TABLET PO SCH (08:31)
[2021-11-02] MEDS: risperiDONE 2 MG TABLET PO SCH ×3 (08:31→16:59)
[2021-11-02] MEDS: OLANZAPINE 5 MG TABLET PO SCH ×4 (08:31→20:32)
[2021-11-02] MEDS: FAMOTIDINE 20 MG TABLET PO SCH (08:31)
[2021-11-02] MEDS: LITHIUM CARBONATE 300 MG CAPSULE PO SCH ×2 (08:31→16:59)
[2021-11-02] MEDS: GLUCERNA SHAKE 237 ML CAN PO SCH ×3 (08:32→17:00)
[2021-11-02] MEDS: BENZTROPINE MESYLATE 0.5 MG TABLET PO SCH ×3 (08:32→16:59)
[2021-11-02] MEDS: OMEGA-3 FATTY ACIDS/FISH OIL CAPSULE PO SCH (08:32)
[2021-11-02] MEDS: DOCUSATE SODIUM 100 MG CAPSULE PO SCH ×2 (08:32→16:59)
[2021-11-02] MEDS: PROTEIN SUPPLEMENT (PROSTAT) 30 ML LIQUID PO SCH ×3 (08:32→17:00)
--- NOTE | 2021-11-02 11:29 | NUR ---
GPS: Nursing Notes: Thought Disorder: Patient is awake and responding to his name, disoriented, impaired judgment, resistant with nursing care, loud and pressured speech, internally preoccupied, responding to internal stimuli by shouting, unable to formulate a plan for self care, unkempt appearance, poor anger management, continue to monitor for safety, continue with treatment plan.
[2021-11-02 15:06] VITALS: BP 136/84
[2021-11-02 20:03] VITALS: BP 124/78
--- NOTE | 2021-11-02 20:30 | NUR ---
RECEIVED PATIENT IN HIS ROOM IN BED. HE IS NOTED AWAKE A/O X 1 KIRSTY HE IS ABLE TO UNDERSTAND BASIC CHINESE. WHEN ASKED HOW HE WAS DOING HE STATED, "I AM FINE". PATIENT IS A POOR HISTORIAN. HIS MOOD IS LABILE IS AFFECT IS BLUNTED. HE REQUIRES CONSTANT REALITY CHECKS. SAFETY AND FALL PRECAUTIONS ARE IN PLACE. PATIENT'S V/S ARE STABLE, HE IS IN NO DISTRESS. HE WAS GIVEN PO FLUIDS AND SNACKS. WILL CONTINUE TO MONITOR.
[2021-11-02] MEDS: risperiDONE 1 MG TABLET PO SCH (20:32)
[2021-11-02] MEDS: ATORVASTATIN 20 MG TABLET PO SCH (20:32)
[2021-11-02] MEDS: SENNOSIDES 1 TABLET PO SCH (20:32)
[2021-11-03 07:30] VITALS: BP 135/95
[2021-11-03] MEDS: risperiDONE 2 MG TABLET PO SCH (08:53)
[2021-11-03] MEDS: DOCUSATE SODIUM 100 MG CAPSULE PO SCH (08:53)
[2021-11-03] MEDS: OMEGA-3 FATTY ACIDS/FISH OIL CAPSULE PO SCH (08:53)
[2021-11-03] MEDS: LITHIUM CARBONATE 300 MG CAPSULE PO SCH (08:53)
[2021-11-03] MEDS: FAMOTIDINE 20 MG TABLET PO SCH (08:53)
[2021-11-03] MEDS: OLANZAPINE 5 MG TABLET PO SCH ×2 (08:53→13:01)
[2021-11-03] MEDS: BENZTROPINE MESYLATE 0.5 MG TABLET PO SCH (08:53)
[2021-11-03] MEDS: PROTEIN SUPPLEMENT (PROSTAT) 30 ML LIQUID PO SCH ×2 (08:53→13:02)
[2021-11-03] MEDS: MULTIVITAMINS,THERAPEUTIC TABLET PO SCH (08:53)
[2021-11-03] MEDS: GLUCERNA SHAKE 237 ML CAN PO SCH ×2 (08:54→13:02)
--- NOTE | 2021-11-03 10:12 | NUR ---
CRISS Discharge Note: Pt will be discharged to [facility] ([phone]) [address] [place] [address] via Ambulance transportation at 1PM. CRISS spoke with admin coordinator, Ana M at the facility who states they are ready to accept the patient today. Pt is aware and agreeable with discharge plans. Pt does not have any family contact. Pt is alert and oriented x1, is unable to plan for self-care at this time; however, is willing to accept care at SNF. Pt denies any suicidal or homicidal ideation. Pt will follow-up at the facility with Psychiatrist, Dr. Taylor ([phone]) and Gas Engineer, Dr. Restrepo. Pt presents with calm mood and congruent affect. PHARMACY: [facility] [phone]) [address] [address].
--- NOTE | 2021-11-03 10:30 | NUR ---
GPS: PT WILL BE DISCHARGE TODAY TO [facility]. REPORT DONE TO THE ADMITTING NURSE AT THE FACILITY. PT ALERT AND ORIENTED TO NAME ONLY. COMPLIANT WITH MEDS WITH RESISTIVE TO CARE. PT DENIES PAIN OR DISCOMFORT. NO AGITATION NOTED AT THIS TIME.
[2021-11-03] MEDS: LORAZEPAM 1 MG TABLET PO PRN (11:26)
[2021-11-03] MEDS ORDERED: LORAZEPAM 0.5 MG TABLET PO SCH (13:00)
[2021-11-03] MEDS ORDERED: BENZTROPINE MESYLATE 1 MG TABLET PO SCH (13:00)
[2021-11-03] MEDS ORDERED: risperiDONE 1 MG TABLET PO SCH (13:00)
--- NOTE | 2021-11-03 13:30 | NUR ---
GPS: PT DISCHARGE FROM UNIT VIA AMBULANCE TRANSPORTATION. PT WAS COOPERATIVE WITH CARE AND MEDS. ASSISTED WITH ADL'S AND TOILETING. NO AGITATION NOTED DURING THE TRANSFER. DENIES PAIN OR DISCOMFORT. PSYCHIATRIST WILL CONTINUE TO FOLLOW UP ON PT AT THE FACILITY.
== END 2021-11-03 13:35 | DRG 885 ==
LOC: ER 12:16 → GPS 14:30
PROVIDERS: ADMIT Psychiatry & Neurology Psychosomatic Medicine; ATTEND Internal Medicine
DX: F25.0 Schizoaffective disorder, bipolar type (principal); F01.51 Vascular dementia, unspecified severity, with behavioral disturbance; E43 Unspecified severe protein-calorie malnutrition; Z68.1 Body mass index [BMI] 19.9 or less, adult; R62.7 Adult failure to thrive; D50.9 Iron deficiency anemia, unspecified; E11.42 Type 2 diabetes mellitus with diabetic polyneuropathy; Z86.61 Personal history of infections of the central nervous system; Z79.82 Long term (current) use of aspirin; Z79.899 Other long term (current) drug therapy; E78.5 Hyperlipidemia, unspecified; G89.29 Other chronic pain; Z88.8 Allergy status to other drugs, medicaments and biological substances
CPT/HCPCS: 36415; 70030-TC; 85025; 93005; 97161; A4663; G0480; J1200; J1630; J2060

== ENCOUNTER 2021-11-29 17:20 | Inpatient (IN) | payer MEDICARE, OTHER ==
[~2021-11-29] VITALS: Ht 167.6 cm; Wt 40.9 kg
[~2021-11-29 17:20] MED LIST changes: +AMIN30LI2 PO; -ASCO500C18 PO; -ASPI-612 PO; -ATOR80TA PO; +BENZ0.5T43 PO; -BISA10SU61 RC; -DONE5TAB34 PO; -GABA-532 PO; -MEMA10TA PO; -NA P133E RC; +OMEG1CAP PO; +SENN-18 PO; -SENN-261 PO
[2021-11-29] MEDS ORDERED: IV NORMAL SALINE 1000 ML BAG IV ONE (17:30)
[2021-11-29 17:52] LABS: HEMATOCRIT 45.2 % (36.7-47.1); MEAN CORPUSCULAR HEMOGLOBIN 32.2 uug (23.8-33.4); MEAN CORPUSCULAR VOLUME 99.4 fL (73.0-96.2); PLATELET COUNT (AUTO) 254 K/uL (152-348)
[2021-11-29 17:52] LABS: ABG BASE EXCESS 1.8 mmol/L; ABG HCO3 26.8 mmol/L; ABG PCO2 43.5 mmHg (35.0-45.0); ABG PH 7.408 (7.350-7.450); ABG PO2 106.3 mmHg (75.0-100.0); ABG SITE RIGHT RADIAL; ABG TOTAL HEMOGLOBIN 14.5 G/dL (13.5-18.0); COHb 0.2 % (0.5-1.5); MetHb 0.5 % (0.0-1.5); O2Hb 97.1 % (94.0-97.0)
--- NOTE | 2021-11-29 17:53 | NUR ---
PT IS IN ROOM #1A. DR NAVA EVALUATED THE PT.
--- NOTE | 2021-11-29 17:57 | NUR ---
Called Luis allan @[phone] to recieve Pt's medication list, was placed on hold for 20 min, and then no answer, the third attempt left a message.
[2021-11-29 18:04] LABS: CARBON DIOXIDE 32 mmol/L (21-32); CHLORIDE 114 mmol/L (98-107); CREATININE 1.4 mg/dL (0.6-1.3); GLUCOSE 185 mg/dL (74-106); POTASSIUM 3.6 mmol/L (3.5-5.1); UREA NITROGEN, BLOOD 31 mg/dL (7-18)
[2021-11-29 18:12] LABS: ALANINE AMINOTRANSFERASE 128 U/L (16-63); ALKALINE PHOSPHATASE 153 U/L (50-136); ASPARTATE AMINOTRANSFERASE 103 U/L (15-37); BILIRUBIN,DIRECT 0.3 mg/dL (0.0-0.2); BILIRUBIN,TOTAL 0.6 mg/dL (0.2-1.0); TOTAL PROTEIN, SERUM 7.2 g/dL (6.4-8.2)
[2021-11-29 18:22] LABS: ACETAMINOPHEN < 2.0 ug/mL (10-30)
[2021-11-29] MEDS ORDERED: AZITHROMYCIN IV 500 MG in IV DEXTROSE 5% 250 ML IV ONE (18:30)
[2021-11-29] MEDS ORDERED: CEFEPIME HCL 2 G in IV DEXTROSE 5% 50 ML IV ONE (18:30)
[2021-11-29] MEDS ORDERED: VANCOMYCIN IV 1,000 MG in IV DEXTROSE 5% 250 ML IV ONE (18:30)
[2021-11-29 18:44] LABS: *BILIRUBIN,URIN 1+ (NEGATIVE); *BLOOD, URINE NEGATIVE (NEGATIVE); *CLARITY,URINE CLEAR (CLEAR); *COLOR,URINE YELLOW (YELLOW); *KETONES,URINE NEGATIVE (NEGATIVE); LEUKOCYTE ESTERASE ,URINE NEGATIVE (NEGATIVE); NITRITE, URINE NEGATIVE (NEGATIVE); PH,URINE 5.5 (5.0-8.0); UGLUCOSE NEGATIVE (NEGATIVE)
[2021-11-29 18:54] LABS: *AMPHETAMINE, URINE NEGATIVE (NEGATIVE); *CANNABINOID, URINE NEGATIVE (NEGATIVE); *COCCAINE, URINE NEGATIVE (NEGATIVE); *OPIATE, URINE NEGATIVE (NEGATIVE); *PHENCYCLIDINE SCREEN,URINE NEGATIVE (NEGATIVE)
[2021-11-29] MEDS ORDERED: REMEDY ESSENTIAL ZINC PASTE 113 GM TP PRN (19:00)
[2021-11-29] MEDS ORDERED: ACETAMINOPHEN 650 MG SUPP.RECT RC PRN (19:00)
[2021-11-29] MEDS ORDERED: ONDANSETRON 4 MG/2 ML VIAL IV PRN (19:00)
[2021-11-29] MEDS ORDERED: IV D5/ 0.9% NACL 1,000 ML IV PRN (19:00)
[2021-11-29] MEDS ORDERED: CEFEPIME HCL 1 G VIAL ONE (19:01)
--- NOTE | 2021-11-29 19:30 | NUR ---
PATIENT in bed awake ,very weak and lethargivc , patient open eyes to name and able to do eye contact but doenst follow commands .v/s hr ST 108,100% SATURATION on NRM at 8 liter no sob noted breathing even and unlabored tolerating NRM ,BP 96/71, TEMP 98.6 AXILLARY .
--- NOTE | 2021-11-29 20:50 | NUR ---
CALLED PHARMACY and informed patient still in ER ,due antibiotic vanco and zithromax needed .
[2021-11-29] MEDS ORDERED: ENOXAPARIN SODIUM 30 MG/0.3 ML DISP.SYRIN SQ SCH (21:00)
--- NOTE | 2021-11-29 21:03 | NUR ---
started d5ns @75 ml/hr to the right upper forearm H/L NO .18.
[2021-11-29] MEDS ORDERED: CEFEPIME HCL 1 G in IV DEXTROSE 5% 50 ML IV SCH (22:00)
--- NOTE | 2021-11-29 22:14 | NUR ---
from NRM 8liters respiratory therapist changed patient to 02 nasal cannula at 5 liter saturation 100% ,rr 20, no respiratory distress noted .
--- NOTE | 2021-11-29 23:45 | NUR ---
report given to CARMELA ROBISON patient going to room 312, telemetry dx: sepsis dr: alexis .
--- NOTE | 2021-11-29 23:55 | NUR ---
belongings inventory done patient only have a 1 blue pants and a1 white t shirt .
[2021-11-30 00:20] VITALS: BP 120/76
--- NOTE | 2021-11-30 01:11 | NUR ---
Informed library circulation technician Ann Wahl that Admitting MD ordered Lovenox for this patient, but patient has allergy to Lovenox. AMENA Girard with order to discontinue Lovenox. Order carried out.
[2021-11-30 04:00] VITALS: BP 124/80
[2021-11-30 06:11] LABS: HEMATOCRIT 40.1 % (36.7-47.1); MEAN CORPUSCULAR HEMOGLOBIN 31.9 uug (23.8-33.4); MEAN CORPUSCULAR VOLUME 99.2 fL (73.0-96.2); PLATELET COUNT (AUTO) 202 K/uL (152-348)
[2021-11-30 06:17] LABS: CREATININE 0.9 mg/dL (0.6-1.3); MAGNESIUM 2.2 mg/dL (1.8-2.4); PHOSPHOROUS 2.5 mg/dL (2.5-4.9); POTASSIUM 3.7 mmol/L (3.5-5.1)
--- NOTE | 2021-11-30 06:22 | NUR ---
Pt in no acute distress. O2 at 3LPM via NC. Still sating 100%. More awake at this time. Still making non sensical sounds. Sinus tachy on tele with HR of 102/min. Critical lab result reported by Lab/ABDIRIZAK [facility] 156, Chloride 121. SALES PROPERTY MANAGER Ke made aware and change IVF to D5W at 75cc.hr. Will carry out order. Safety measure maintained and call light within reached.
[2021-11-30] MEDS: IV D5W 1000ML 1,000 ML IV PRN ×2 (07:11→23:23)
--- NOTE | 2021-11-30 08:00 | NUR ---
RECEIVED PATIENT IN BED WITH EYES CLOSED BUT HEARD ON AND OF SCREAMING OBSERVED ON CHANGED OF SHIFT, AROUSABLE WITH BOTH VERBAL AND TACTILE STIMULI. UNABLE TO FOLLOW COMMAND. O2 AT 3L NC SATURATING 100%. SR ON MONITOR. CONTINUE TELE MONITORING
[2021-11-30] MEDS ORDERED: VANCOMYCIN IV 500 MG in IV DEXTROSE 5% 100 ML IV SCH (09:00)
[2021-11-30] MEDS: PANTOPRAZOLE SODIUM 40 MG VIAL IV SCH (09:07)
[2021-11-30 09:49] LABS: BILIRUBIN,DIRECT 0.2 mg/dL (0.0-0.2); BILIRUBIN,TOTAL 0.7 mg/dL (0.2-1.0); TOTAL PROTEIN, SERUM 6.3 g/dL (6.4-8.2)
[2021-11-30] MEDS: CEFEPIME HCL 2 G in IV DEXTROSE 5% 100 ML IV SCH ×2 (10:16→21:47)
[2021-11-30] MEDS: VANCOMYCIN IV 500 MG in IV DEXTROSE 5% 100 ML IV SCH ×2 (10:16→23:13)
[2021-11-30 11:22] VITALS: BP 123/83
--- NOTE | 2021-11-30 12:16 | NUR ---
no acute change from morning assessment
[2021-11-30 15:17] VITALS: BP 91/60
[2021-11-30 20:00] VITALS: BP 108/72
[2021-12-01] VITALS: BP 136/77
[2021-12-01 01:55] VITALS: BP 128/69
[2021-12-01 04:00] VITALS: BP 108/68
--- NOTE | 2021-12-01 06:50 | NUR ---
Left pt. in bed with no neurological changes. vitals stable no c/o pain.
[2021-12-01 07:16] LABS: HEMATOCRIT 35.9 % (36.7-47.1); MEAN CORPUSCULAR HEMOGLOBIN 32.1 uug (23.8-33.4); MEAN CORPUSCULAR VOLUME 97.7 fL (73.0-96.2); PLATELET COUNT (AUTO) 185 K/uL (152-348)
[2021-12-01 07:52] LABS: BILIRUBIN,TOTAL 0.6 mg/dL (0.2-1.0); CREATININE 0.7 mg/dL (0.6-1.3); MAGNESIUM 2.1 mg/dL (1.8-2.4); PHOSPHOROUS 2.1 mg/dL (2.5-4.9); POTASSIUM 2.8 mmol/L (3.5-5.1); TOTAL PROTEIN, SERUM 5.8 g/dL (6.4-8.2)
--- NOTE | 2021-12-01 08:00 | NUR ---
received resting in bed, no distress noted, on 3l/nc 02 sat at 98%, tele SR, confused, maintains eye contact when name is called, screams at times and gets combative when repositioned, kept npo as ordered,safety measures maintained
[2021-12-01] MEDS: PANTOPRAZOLE SODIUM 40 MG VIAL IV SCH (09:07)
[2021-12-01] MEDS: CEFEPIME HCL 2 G in IV DEXTROSE 5% 100 ML IV SCH ×2 (09:08→20:26)
[2021-12-01] MEDS ORDERED: POTASSIUM PHOSPHATE MM 15 MMOL in IV NORMAL SALINE 250 ML IV ONE (10:00)
[2021-12-01] MEDS ORDERED: POTASSIUM CHLORIDE 20 MEQ TAB.PRT.SR PO ONE (10:00)
[2021-12-01] MEDS: VANCOMYCIN IV 500 MG in IV DEXTROSE 5% 100 ML IV SCH ×2 (10:35→22:05)
[2021-12-01 11:37] VITALS: BP 109/73
--- NOTE | 2021-12-01 14:30 | NUR ---
seen by ST- see notes, will start on pureed diet
[2021-12-01 15:55] VITALS: BP 108/69
[2021-12-01] MEDS: IV D5W 1000ML 1,000 ML IV PRN (17:19)
--- NOTE | 2021-12-01 19:01 | NUR ---
no distress noted, awake but quiet, all needs attended and met, safety measures maintained, remains SR on tele
[2021-12-01 20:00] VITALS: BP 108/70
--- NOTE | 2021-12-01 23:28 | NUR ---
Received patient lying in bed. Non-verbal at this time, but with eyes open. In no acute distress. No sign s or symptoms of any pain or SOB at this time. O2 sat at 98% on O2 at 3LPM via NC in place. IV site on right upper arm and right FA intact and patent. IVF infusing. Needs assessed and anticipated to. Safety measure initiated and call light within reached.
[2021-12-02] VITALS: BP 108/67
[2021-12-02 04:00] VITALS: BP 100/63
--- NOTE | 2021-12-02 06:27 | NUR ---
Patient slept well during the night. No adverse reaction noted from IV antibiotic. IVF infusing to PIV on right FA. NSR on tele with HR of 78/min. O2 at 2LPM via NC. O2 sat at 100%. Needs anticipated to and met. Safety measure maintained.
[2021-12-02 07:09] LABS: HEMATOCRIT 33.5 % (36.7-47.1); MEAN CORPUSCULAR HEMOGLOBIN 32.6 uug (23.8-33.4); MEAN CORPUSCULAR VOLUME 95.3 fL (73.0-96.2); PLATELET COUNT (AUTO) 187 K/uL (152-348)
[2021-12-02 07:16] LABS: ALANINE AMINOTRANSFERASE 78 U/L (16-63); ALKALINE PHOSPHATASE 97 U/L (50-136); ASPARTATE AMINOTRANSFERASE 21 U/L (15-37); BILIRUBIN,TOTAL 0.6 mg/dL (0.2-1.0); CARBON DIOXIDE 30 mmol/L (21-32); CHLORIDE 105 mmol/L (98-107); CREATININE 0.6 mg/dL (0.6-1.3); GLUCOSE 121 mg/dL (74-106); MAGNESIUM 1.9 mg/dL (1.8-2.4); PHOSPHOROUS 2.3 mg/dL (2.5-4.9); POTASSIUM 2.9 mmol/L (3.5-5.1); TOTAL PROTEIN, SERUM 5.6 g/dL (6.4-8.2); UREA NITROGEN, BLOOD 4 mg/dL (7-18)
[2021-12-02] MEDS ORDERED: VANCOMYCIN IV 500 MG in IV DEXTROSE 5% 100 ML IV SCH (08:00)
--- NOTE | 2021-12-02 08:00 | NUR ---
awake but only repeats his name when is called, on 2l/nc 02- no shortness of breath noted, sat at 98%, repositioned and fed with breakfast abut ate only 20%, no coughing episode noted, oral care provided, safety measures in place, needs attended
[2021-12-02] MEDS: PANTOPRAZOLE SODIUM 40 MG VIAL IV SCH (08:42)
[2021-12-02] MEDS: CEFEPIME HCL 2 G in IV DEXTROSE 5% 100 ML IV SCH ×2 (08:51→20:16)
[2021-12-02] MEDS: IV D5W 1000ML 1,000 ML IV PRN (08:54)
[2021-12-02] MEDS ORDERED: POTASSIUM PHOSPHATE MM 15 MMOL in IV NORMAL SALINE 250 ML IV ONE (10:00)
[2021-12-02 12:25] VITALS: BP 100/64
--- NOTE | 2021-12-02 12:30 | NUR ---
placed on roomair- sat at 97%, repositioned for comfort, quiet at this time but screams occasionally
[2021-12-02 16:23] VITALS: BP 118/78
--- NOTE | 2021-12-02 18:32 | NUR ---
no distress noted, all needs attended and met, tele SR 70's, remains on room air with sat at 98%
--- NOTE | 2021-12-02 19:30 | NUR ---
Received patient lying in bed. Appears comfortable. In no acute distress. No sign s or symptoms of any pain or SOB. IV site on right upper arm and right FA intact and patent. IVF infusing. Needs assessed and anticipated to. Safety measure initiated and call light within reached.
[2021-12-03] MEDS: IV D5W 1000ML 1,000 ML IV PRN (00:31)
--- NOTE | 2021-12-03 05:40 | NUR ---
Patient slept well during the night. No adverse reaction noted from IV antibiotic. IVF infusing to PIV on right FA. NSR on tele with HR of 68/min. Needs anticipated to and met. Safety measure maintained.
[2021-12-03 07:04] LABS: HEMATOCRIT 34.5 % (36.7-47.1); MEAN CORPUSCULAR HEMOGLOBIN 32.6 uug (23.8-33.4); MEAN CORPUSCULAR VOLUME 94.6 fL (73.0-96.2); PLATELET COUNT (AUTO) 206 K/uL (152-348)
[2021-12-03 07:14] LABS: CREATININE 0.8 mg/dL (0.6-1.3); MAGNESIUM 2.1 mg/dL (1.8-2.4); PHOSPHOROUS 2.3 mg/dL (2.5-4.9)
[2021-12-03 07:55] LABS: POTASSIUM 2.7 mmol/L (3.5-5.1)
[2021-12-03] MEDS: PANTOPRAZOLE SODIUM 40 MG VIAL IV SCH (08:24)
[2021-12-03] MEDS: CEFEPIME HCL 2 G in IV DEXTROSE 5% 100 ML IV SCH (08:24)
[2021-12-03] MEDS ORDERED: POTASSIUM CHLORIDE 20 MEQ TAB.PRT.SR PO ONE (09:00)
[2021-12-03] MEDS ORDERED: NEUTRA PHOS PACKET PO ONE (09:00)
[2021-12-03] MEDS ORDERED: POTASSIUM CHLORIDE 10 MEQ TAB.PRT.SR PO SCH (09:15)
[2021-12-03] MEDS ORDERED: LITH300C4 PO (11:35)
[2021-12-03] MEDS ORDERED: MEMA10TA PO (11:35)
[2021-12-03] MEDS ORDERED: DONE5TAB34 PO (11:35)
[2021-12-03] MEDS ORDERED: RISP3TAB5 PO (11:35)
[2021-12-03] MEDS ORDERED: OLAN5TAB70 PO (12:00)
[2021-12-03] MEDS ORDERED: RISP1TAB7 PO (12:00)
[2021-12-03] MEDS ORDERED: ACET-2154 PO (12:00)
[2021-12-03] MEDS ORDERED: LORA0.5T48 PO (12:00)
[2021-12-03] MEDS ORDERED: ATOR20TA PO (12:00)
[2021-12-03] MEDS ORDERED: MAG355OR18 PO (12:00)
[2021-12-03] MEDS ORDERED: NUT.237L70 PO (12:02)
[2021-12-03] MEDS ORDERED: GLUCERNA SHAKE 237 ML CAN PO SCH (12:15)
[2021-12-03] MEDS ORDERED: PROTEIN SUPPLEMENT (PROSTAT) 30 ML LIQUID PO SCH (12:15)
[2021-12-03 12:18] VITALS: BP 94/62
[2021-12-03] MEDS ORDERED: PROT30LI PO (14:25)
[2021-12-03] MEDS ORDERED: CEFE2FRO IV (14:25)
[2021-12-03] MEDS ORDERED: POTA10CA43 PO (14:25)
[2021-12-03 16:32] VITALS: BP 100/68
--- NOTE | 2021-12-03 17:36 | NUR ---
dc orders received noted and carried out.dc instruction and rn report gven to the [facility] pt left the facility via ambulances in stable condition
== END 2021-12-03 17:45 | DRG 871 ==
LOC: ER 17:21 → TELE3 23:33 → MEDSURG3 12-03 09:25
PROVIDERS: ADMIT Internal Medicine; ATTEND Internal Medicine
DX: A41.9 Sepsis, unspecified organism (principal); E43 Unspecified severe protein-calorie malnutrition; J69.0 Pneumonitis due to inhalation of food and vomit; J96.01 Acute respiratory failure with hypoxia; G92.8 Other toxic encephalopathy; D68.59 Other primary thrombophilia; E87.0 Hyperosmolality and hypernatremia; Z68.1 Body mass index [BMI] 19.9 or less, adult; N17.9 Acute kidney failure, unspecified; D64.9 Anemia, unspecified; E78.5 Hyperlipidemia, unspecified; E86.0 Dehydration; E87.6 Hypokalemia; E88.09 Other disorders of plasma-protein metabolism, not elsewhere classified; F31.9 Bipolar disorder, unspecified; G89.29 Other chronic pain; Z20.822 Contact with and (suspected) exposure to COVID-19; R62.7 Adult failure to thrive; F25.9 Schizoaffective disorder, unspecified; E11.42 Type 2 diabetes mellitus with diabetic polyneuropathy; F01.50 Vascular dementia, unspecified severity, without behavioral disturbance, psychotic disturbance, mood disturbance, and anxiety; Z74.09 Other reduced mobility; R74.01 Elevation of levels of liver transaminase levels; Z86.19 Personal history of other infectious and parasitic diseases
CPT/HCPCS: 36415; 36600; 70450; 71045; 83605; 83690; 83735; 84100; 84484; 85025; 85730; 86850; 86900; 86901; 87040; 87086; 93005; A4663; C9113; G0378; J0456; J0692; J3370; J3490; J7040; J7042; J7050; J7070